=== PATIENT | female | born 1955 | race Caucasian/White ===

== ENCOUNTER → 2019-04-27 15:52 | Outpatient (BNVA) | payer BC, SELFPAY | PROVIDERS: Family Provider Nurse Practitioner; PCP Family Medicine; Visit Provider Nurse Practitioner Psychiatric/Mental Health | DX: F41.1 Generalized anxiety disorder (principal); F33.0 Major depressive disorder, recurrent, mild | CPT/HCPCS: 99214 ==

== ENCOUNTER 2019-07-21 08:46 | Outpatient (CLI) | payer BC, SELFPAY ==
--- NOTE | 2019-07-21 08:59 | XR_ITS ---
WS: [id number] CHEST 2 VIEWS HISTORY: CHRONIC RESPIRATORY CONDITIONS DUE TO CHEMICALS, GASES, FUSE COMPARISON: 07/01/2018 Lungs: Clear with no abnormality. No pleural effusion or pneumothorax. Cardiac size: Normal. Mediastinum/Aorta: Normal mediastinum. Bones: Normal. XR/XR chest 2V* [id number] IMPRESSION: Normal chest.
== END 2019-07-21 08:47 | disposition home or self-care (01) ==
LOC: RAD 08:51
PROVIDERS: PCP Nurse Practitioner; Visit Provider Nurse Practitioner
DX: J68.4 Chronic respiratory conditions due to chemicals, gases, fumes and vapors (principal); R06.89 Other abnormalities of breathing
CPT/HCPCS: 71046

== ENCOUNTER → 2019-07-27 08:35 | Outpatient (BNVA) | payer BC, SELFPAY | PROVIDERS: PCP Nurse Practitioner; Visit Provider Nurse Practitioner Psychiatric/Mental Health | DX: F41.1 Generalized anxiety disorder (principal); F33.42 Major depressive disorder, recurrent, in full remission | CPT/HCPCS: 99212 ==

== ENCOUNTER → 2019-09-07 07:55 | Outpatient (BNVA) | payer BC, SELFPAY | PROVIDERS: PCP Nurse Practitioner; Visit Provider Nurse Practitioner Psychiatric/Mental Health | DX: F33.42 Major depressive disorder, recurrent, in full remission (principal); F41.1 Generalized anxiety disorder | CPT/HCPCS: 99212 ==

== ENCOUNTER → 2019-10-19 09:26 | Outpatient (BNVA) | payer BC, SELFPAY | PROVIDERS: PCP Nurse Practitioner; Visit Provider Nurse Practitioner Psychiatric/Mental Health | DX: F33.42 Major depressive disorder, recurrent, in full remission (principal); F41.1 Generalized anxiety disorder | CPT/HCPCS: G0463 ==

== ENCOUNTER → 2020-01-11 07:42 | Outpatient (BNVA) | payer BC, SELFPAY | PROVIDERS: PCP Nurse Practitioner; Visit Provider Nurse Practitioner Psychiatric/Mental Health | DX: F33.42 Major depressive disorder, recurrent, in full remission (principal); F41.1 Generalized anxiety disorder | CPT/HCPCS: G0463 ==

== ENCOUNTER → 2020-02-24 15:56 | Outpatient (BNVA) | payer BC, SELFPAY | PROVIDERS: PCP Nurse Practitioner; Visit Provider Nurse Practitioner | DX: Z20.828 Contact with and (suspected) exposure to other viral communicable diseases (principal) | CPT/HCPCS: 87635 ==

== ENCOUNTER → 2020-04-11 10:15 | Outpatient (BNVA) | payer BC, SELFPAY | PROVIDERS: PCP Nurse Practitioner; Visit Provider Nurse Practitioner Psychiatric/Mental Health | DX: F41.1 Generalized anxiety disorder (principal); F33.41 Major depressive disorder, recurrent, in partial remission | CPT/HCPCS: 99214 ==

== ENCOUNTER → 2020-06-27 07:58 | Outpatient (BNVA) | payer BC, SELFPAY | PROVIDERS: PCP Nurse Practitioner; Visit Provider Nurse Practitioner Psychiatric/Mental Health | DX: F41.1 Generalized anxiety disorder (principal); F33.41 Major depressive disorder, recurrent, in partial remission | CPT/HCPCS: 99213 ==

== ENCOUNTER → 2021-07-31 14:36 | Outpatient (BNVA) | payer MEDICARE, BC, SELFPAY | PROVIDERS: PCP Nurse Practitioner; Visit Provider Internal Medicine Cardiovascular Disease | DX: I10 Essential (primary) hypertension (principal) | CPT/HCPCS: 99213; 99214 ==

== ENCOUNTER 2021-09-22 15:32 | Outpatient (CLI) | payer MEDICARE, BC, SELFPAY ==
--- NOTE | 2021-09-22 15:41 | MM_ITS ---
WS: [id number] BILATERAL 3D TOMOSYNTHESIS DIGITAL SCREENING MAMMOGRAPHY WITH CAD CLINICAL INFORMATION: Breast cancer screening HISTORY: Screening mammogram. Prior removed bilateral breast implants. COMPARISON: July 27, 2018 TECHNIQUE: Bilateral CC and MLO views. FINDINGS: The breasts are composed of heterogeneous fibroglandular density tissue, which can limit the detectio n of small underlying mass lesions. Benign breast calcifications bilaterally. No suspicious mass, asy mmetry, calcifications, or architectural distortion. No evidence of malignancy. MM/[place] [id number] IMPRESSION: BI-RADS: 2-Benign FOLLOW UP: 1 Year Follow-up Recommend return to annual screening mammography.
== END 2021-09-22 15:33 | disposition home or self-care (01) ==
PROVIDERS: Visit Provider Family Medicine
DX: Z12.31 Encounter for screening mammogram for malignant neoplasm of breast (principal)
CPT/HCPCS: 77063; 77067

== ENCOUNTER 2022-03-27 14:10 | Outpatient (CLI) | payer MEDICARE, BC, SELFPAY ==
--- NOTE | 2022-03-27 14:15 | USCV_ITS ---
Lola Waldrop Age: 66 Gender: F : 1955 Exam Date: 03/27/2022 14:24 Ordering Phys: Al Mendez DO Technologist: NIRMAL Exam Location: [facility] – [place] Indication: SYSTOLIC MURMUR BP: 118 / 82 HR: 61 Rhythm: Sinus Technical Quality: Adequate MEASUREMENTS (Male / Female) Normal Values 2D ECHO LVOT Diameter 2.0 cm LV Ejection Fraction MOD 2C 66.9 % LV Ejection Fraction 2C AL 69.6 % LA Diameter 2.8 cm LA Width 1.9 cm LA Height 4.7 cm RA Width 2.5 cm RA Height 3.7 cm Aorta at Sinotubular Diameter 2.3 cm IVC Diameter 1.4 cm M-MODE Aortic Annulus Diameter 2.5 cm LA Ao Ratio MM 1.1 MV E Point Septal Separation 0.6 cm DOPPLER AV Peak Velocity 179.7 cm/s LVOT Peak Velocity 118.0 cm/s AV Area Cont Eq vti 2.4 cm squared AV Area Cont Eq pk 2.1 cm squared MV Peak Velocity 85.0 cm/s MV Area PHT 3.5 cm squared Mitral E to A Ratio 0.8 MV E' Velocity 47.5 cm/s Mitral E to MV E' Ratio 7.9 Mitral E to LV E' Lateral Ratio 7.5 Mitral E to LV E' Septal Ratio 8.3 TR Peak Velocity 148.5 cm/s TR Peak Gradient 8.8 mmHg TR Mean Velocity 111.4 cm/s TR Mean Gradient 5.3 mmHg TR Velocity Time Integral 41.8 cm TV Peak E Velocity 49.0 cm/s Right Atrial Pressure 3.0 mmHg Pulmonary Artery Systolic Pressu 11.8 mmHg PV Peak Velocity 113.0 cm/s RV Acceleration Time 0.2 s RV Ejection Time 0.3 s RV AcT/ET 0.5 FINDINGS Left Ventricle Normal left ventricular size, systolic function and wall thickness, with no regional wall motion abnormalities. Left ventricular ejection fraction is estimated at 70 %. Normal diastolic function. Right Ventricle Normal right ventricular size and systolic function. Right ventricular systolic pressure 11.8 mmHg. Right Atrium Normal right atrial size. Left Atrium Normal left atrial size. Mitral Valve Structurally normal mitral valve. No mitral valve stenosis. No mitral valve regurgitation. Aortic Valve Structurally normal trileaflet aortic valve. No aortic valve stenosis. No aortic valve regurgitation. Tricuspid Valve Structurally normal tricuspid valve. No tricuspid valve stenosis. Trace tricuspid valve regurgitation. Pulmonic Valve Pulmonic valve not well visualized. No pulmonary valve stenosis. No pulmonary valve regurgitation. Pericardium No pericardial effusion. Aorta Normal size aortic root and proximal ascending aorta. IVC Normal IVC dimension with >50% respiratory change of the inferior vena cava. CONCLUSIONS 1. Normal left ventricular size, systolic function and wall thickness, with no regional wall motion abnormalities. Left ventricular ejection fraction is estimated at 70 %. Normal diastolic function. 2. No significant valvular abnormality. 3. No significant change when compared to study dated 12/15/2016. Sharmaine Santana MD (Electronically Signed) Final Date: 27 March 2022 21:42 S
== END 2022-03-27 14:11 | disposition home or self-care (01) ==
LOC: RAD 14:10
PROVIDERS: PCP Family Medicine; Visit Provider Family Medicine
DX: I35.8 Other nonrheumatic aortic valve disorders (principal)
CPT/HCPCS: 93306

== ENCOUNTER 2022-04-02 14:18 | Outpatient (CLI) | payer MEDICARE, BC, SELFPAY ==
--- NOTE | 2022-04-02 14:24 | MR_ITS ---
WS: [id number] MRI CERVICAL SPINE NONCONTRAST HISTORY: CERVICAL SPINAL STENOSIS COMPARISON: 10/21/2018 Technique: Multiplanar, multisequence noncontrast imaging of the cervical spine. Straightening and slight reversal the normal cervical lordosis centered at C4-5. Disc spaces are narrowed. Normal signal within the cord. Craniocervical junction, C1 and C2 relationship, odontoid process and soft tissues are normal. C2-C3: Normal. C3-C4: Mild osteophytic ridging. No significant stenosis. Very mild facet arthritis. C4-C5: Mild annular disc bulging and osteophytic ridging. Mild facet joint arthritis. There is encroa chment upon the ventral cervical cord and deformity. Moderate central and RIGHT foraminal stenosis. M ild LEFT foraminal stenosis. Not significantly changed since the prior study. C5-C6: Mild osteophytic ridging and disc bulging and facet arthritis. Larger osteophytes extend into the foramen. Moderate central with moderate to severe foraminal stenosis. Mild progression since the prior study. C6-C7: Diffuse osteophytic ridging and disc bulging and mild facet arthritis. Moderate central and bi lateral foraminal stenosis. Minimal progression since the prior study. C7-T1: Normal. Paraspinal soft tissue are normal. MR/MR cervical spin wo con* [id number] IMPRESSION: 1. Degenerative spondylitic changes in the mid cervical spine. Mild progressio n since 2019. Stenosis due to combination of vertebral body osteophytes and fac et disease and mild disc bulging. 2. Moderate central and RIGHT foraminal stenosis and mild LEFT foraminal steno sis at C4-5. 3. Moderate central with moderate to severe bilateral foraminal stenosis at C5 -6. 4. Moderate central and bilateral foraminal stenosis at C6-7.
--- NOTE | 2022-04-02 14:39 | MR_ITS ---
WS: [id number] MRI LUMBAR SPINE NONCONTRAST HISTORY: SPINAL STENOSIS COMPARISON: 10/04/2015 TECHNIQUE: Sagittal and axial multisequence imaging is submitted. Moderate S-shaped curvature lumbar spine. Posterior alignment is otherwise normal. No fractures or marrow edema. Mild disc desiccation. Conus terminates normally at L1-2 disc level. L1-L2: Minimal facet arthritis. No stenosis. L2-L3: Moderate annular disc bulging with mild progression since the prior study. Mild ligamentum fla vum and facet arthritis. L3-L4: Mild annular disc bulging with ligamentum flavum and facet arthritis. No stenosis. L4-L5: Mild annular disc bulging with moderate ligamentum flavum and facet arthritis. Mild encroachme nt upon the ventral thecal sac with mild narrowing of the subarticular recesses. Mild RIGHT foraminal narrowing. Suspect there is a small RIGHT foraminal disc protrusion. L5-S1: Minimal facet arthritis. Moderate ligamentum flavum hypertrophy. No stenosis. Paravertebral soft tissues are negative. MR/MR lumbar spine wo con* [id number] IMPRESSION: 1. Multilevel mild ligamentum flavum and facet arthritis. No significant progr ession since the prior study. 2. Mild central stenosis and subarticular recess stenosis at L4-5. 3. Small RIGHT foraminal disc protrusion and RIGHT foraminal stenosis at L4-5.
--- NOTE | 2022-04-02 15:48 | XR_ITS ---
WS: [id number] Exam: XR lumbar spine f/e only [id number] Date/Time of Exam: 04/02/2022 3:48 PM Reason For Exam: VERTEBROGENIC BACK PAIN Comparison 10/04/2015. No flexion or extension instability. Disc spaces relatively well maintained. Facet DJD at all levels. No change since previous exam. XR/XR lumbar spine f/e only [id number] IMPRESSION: 1. No flexion or extension instability. 2. Facet DJD at all levels.
== END 2022-04-02 14:19 | disposition home or self-care (01) ==
LOC: RAD 14:18
PROVIDERS: PCP Family Medicine; Visit Provider Anesthesiology Pain Medicine
DX: M48.02 Spinal stenosis, cervical region (principal)
CPT/HCPCS: 72120; 72141; 72148

== ENCOUNTER 2022-06-19 14:48 | Outpatient (CLI) | payer MEDICARE, BC, SELFPAY ==
--- NOTE | 2022-06-19 15:00 | XR_ITS ---
WS: [id number] DEXA (DUAL ENERGY X-RAY ABSORPTIOMETRY) Bone mineral density was performed using a [employer] machine. HISTORY: Screening for osteoporosis COMPARISON: None available. Lumbar spine BMD (L1-L4): 1.061 g/cm2 T score: -1.0 Z score: 0.5 Total hip BMD: Left: 0.792 g/cm2. T score: -1.7 Z score: -0.5 Right: 0.737 g/cm2. T score: -2.1 Z score: -0.9 10 year probability of a major osteoporotic fracture is 14.4%. Mild RIGHT curvature lumbar spine. XR/XR DEXA axial skeleton* [id number] IMPRESSION: OSTEOPENIA based upon the WHO classification for females.
== END 2022-06-19 14:49 | disposition home or self-care (01) ==
LOC: RAD 14:53
PROVIDERS: PCP Family Medicine; Visit Provider Family Medicine
DX: Z78.0 Asymptomatic menopausal state (principal); M85.80 Other specified disorders of bone density and structure, unspecified site
CPT/HCPCS: 77080

== ENCOUNTER → 2022-09-18 11:39 | Outpatient (BNVA) | payer MEDICARE, BC, SELFPAY | PROVIDERS: PCP Family Medicine; Visit Provider Internal Medicine Cardiovascular Disease | DX: I10 Essential (primary) hypertension (principal); F32.A Depression, unspecified; M19.90 Unspecified osteoarthritis, unspecified site; K21.9 Gastro-esophageal reflux disease without esophagitis; F41.1 Generalized anxiety disorder | CPT/HCPCS: 99214 ==

== ENCOUNTER → 2023-02-25 10:00 | Outpatient (BNVA) | payer MEDICARE, BC, SELFPAY | PROVIDERS: PCP Family Medicine; Visit Provider Nurse Practitioner Family | DX: R05.9 Cough, unspecified (principal); J06.9 Acute upper respiratory infection, unspecified | CPT/HCPCS: 87400; 87426 ==

== ENCOUNTER → 2023-05-11 18:14 | Outpatient (BNVA) | payer MEDICARE, BC, SELFPAY | PROVIDERS: PCP Family Medicine; Visit Provider Emergency Medicine | DX: R11.2 Nausea with vomiting, unspecified (principal); R19.7 Diarrhea, unspecified | CPT/HCPCS: 87400 ==

== ENCOUNTER 2023-05-12 07:59 | Inpatient (IN) | payer MEDICARE, BC, SELFPAY ==
[2023-05-12] VITALS (14 sets, daily range): BP systolic 139–163; BP diastolic 74–96; PULSE 73–103; RESP 16–22; TEMP 36.4–36.9; O2SAT 95–100; BMI 26.5; BMI 26.6
--- NOTE | 2023-05-12 08:13 | CT_ITS ---
WS: [id number] CT ABDOMEN PELVIS TECHNIQUE: Contrast-enhanced CT of the abdomen and pelvis with coronal and sagittal reformatted image s. CLINICAL INFORMATION: abd pain COMPARISON: CT 2018 DLP: 553.[address] scans at [facility] use at least one of these dose optimization techniques: automated e xposure control; mA and/or kV adjustment per patient size (includes targeted exams where dose is matc hed to clinical indication); or iterative reconstruction. FINDINGS: Mild diffuse fatty infiltration of the liver. Normal portal vein and splenic vein. Mild int rahepatic biliary ductal dilatation. Cholecystectomy clips. Small to moderate esophageal hiatal herni a appears progressed compared to 2018. Normal caliber abdominal aorta. Celiac and SMA are patent. Normal portal vein and splenic vein. Adren al glands are normal. Normal renal parenchymal enhancement. No hydronephrosis. Pelvic phleboliths. Tiny fat-containing umbilical hernia. Urine distended bladder. Sigmoid diverticul osis. Low-lying cecum in the RIGHT lower quadrant with mild constipation. No evidence of small or lar ge bowel obstruction. Prior appendectomy. Prior cholecystectomy. Hysterectomy. IMPRESSION: 1. Small to moderate esophageal hernia progressed compared to previous. 2. Prior cholecystectomy. Mild intrahepatic biliary ductal dilatation likely physiologic postcholecy stectomy. 3. No hydronephrosis in either kidney. 4. Few sigmoid diverticuli. 5. Mild cecal constipation. Low-lying cecum in the pelvis. 6. Prior appendectomy and hysterectomy. 7. No other acute findings.
--- NOTE | 2023-05-12 08:19 | W.ED.ABDPA2 ---
HPI - Abdominal Pain General: Chief Complaint: Abdominal Pain Stated Complaint: Vomiting blood, abd pain Time Seen by Provider: 05/12/23 08:08 Source: patient Mode of arrival: wheelchair History of Present Illness: 59-year-old female who presents to the emergency room with complaints of abdominal pain nausea and vomiting. This began about 3 days ago, initially with upper abdominal pain in the epigastric region. Within 24 hours she began to have nausea vomiting and diarrhea. Patient had dark vomitus and then yesterday noticed some small flecks of blood in the vomit that had a very concerned she was seen in an outpatient clinic and given antiemetics and discharged home with orally disintegrating ondansetron. She states she vomited this morning even after that and continues to vomit has worsening and now persistent epigastric leg pain. She states her urine has been dark and she has had decreased urine output but she has not noticed any hematuria. She previously has had EGD and colonoscopy, had a small polyp removed and was told to repeat her colonoscopy in 10 years. She is also had an appendectomy and cholecystectomy. Patient is extremely uncomfortable moving around a lot almost typical presentation for a kidney stone but she has no flank pain no dysuria urgency or frequency and no hematuria. She has not noticed any hematochezia or melena. No previous history of upper GI bleed. MD elicited complaint: abdominal pain Onset (ago): day(s) (3) Pain Consistency: constant Location: None Quality: cramping Relieving factors: nothing Associated Symptoms: Reports diarrhea, nausea and vomiting; Denies anorexia, belching, bloating, change in bowel habits, change in stool character, chills, coffee ground emesis, constipation, GI cramping, dyspepsia, dysuria, excessive flatus, fever(s), heartburn, hematochezia, hematuria, hematemesis, fecal incontinence, loose stools, melena, poor appetite and syncope Review of Systems Const: Denies: fever(s) or chills Card: Denies: chest pain or syncope Resp: Denies: dyspnea GI: Reports: abdominal pain, nausea, vomiting and diarrhea; Denies: hematemesis, coffee ground emesis, heartburn, constipation, bloating, GI cramping, belching, excessive flatus, fecal incontinence, change in bowel habits, change in stool character, hematochezia or melena : Denies: dysuria, urinary frequency, urinary urgency or hematuria Musc: Denies: neck pain or back pain Skin/Breast: Denies: rash PFSH ED PFSH: Medical History Congestion of nasal sinus Diverticulosis Psychiatric care Pharyngitis Thyroid disease Establishing care with new doctor, encounter for Anxiety Depression GERD (gastroesophageal reflux disease) Arthritis S/p breast implant removal Psychiatric care Major depressive disorder, recurrent, in partial remission Major depressive disorder, recurrent, in full remission HTN (hypertension) Generalized anxiety disorder Surgical History S/P cholecystectomy S/P breast augmentation S/P hysterectomy H/O: section Family History Father Stroke Hypercholesterolemia Grandfather Stroke Cancer Social History Smoking and tobacco/nicotine status: never used tobacco/nicotine Female Reproductive History: Spontaneous abortions: No Physical Exam Const: GENERAL APPEARANCE: cooperative and comfortable ORIENTATION/CONSCIOUSNESS: Yes awake, Yes oriented to person, Yes oriented to place and Yes oriented to time HENMT: COMMON NORMALS: normocephalic, atraumatic and hearing grossly normal bilaterally HEAD & SCALP: normocephalic and atraumatic Resp: COMMON NORMALS: normal respiratory effort, No retractions, No use of accessory muscles and clear to auscultation bilaterally AUSCULTATION: clear to auscultation bilaterally Cardio: COMMON NORMALS: regular rate, regular rhythm and No murmurs present (Cardio) RATE: regular rate RHYTHM: regular rhythm GI: COMMON NORMALS: Soft to palpation and No hepatosplenomegaly present AUSCULTATION: Yes normoactive bowel sounds PALPATION: Yes Soft to palpation, No Tenderness to palpation present (GI), No Guarding due to palpation present (GI) and Yes No hepatosplenomegaly present : COMMON NORMALS: Yes no CVA tenderness BLADDER/KIDNEY EXAM: Yes no CVA tenderness Back/Pelvis: COMMON NORMALS: no CVA tenderness Extremity: COMMON NORMALS: normal to inspection, capillary refill normal, no clubbing, cyanosis or edema, no calf tenderness and no pedal edema Neuro: SENSORIUM/ORIENTATION: Yes oriented to person, Yes oriented to place and Yes oriented to time Skin: COMMON NORMALS: no rashes or lesions noted GENERAL SKIN EXAM: no rashes or lesions noted Course Vital Signs: Vital signs: Vital Signs Temperature 97.5 F L 05/12/23 15:13 Pulse Rate 78 05/12/23 15:51 Respiratory Rate 16 05/12/23 15:51 Blood Pressure 157/80 05/12/23 15:13 Pulse Oximetry 97 05/12/23 15:51 Oxygen Delivery Me thod Room Air 05/12/23 15:51 MDM - Abdominal Pain Medical Decision Making Patient improved after pain medications and GI cocktail. Very mild elevation of liver enzymes. There is some slight dilation of the common bile duct but it looks physiologic postcholecystectomy after discussing with the radiologist. Fluids and pain medications of help will place patient nobs overnight EGD in the morning to evaluate for the hematemesis Differential Diagnosis Likely abdominal pain Medical Records I reviewed the patient's medical records. Lab Data I reviewed the patient's lab results. 05/12/23 08:10 05/12/23 08:10 Labs/Radiology: Radiology Impressions Chest X-Ray 05/12/23 10:58 IMPRESSION: No acute findings. Laboratory Results WBC 19.59 10^3/uL (3.29-11.43) H 05/12/23 08:10 RBC 5.22 10^6/uL (3.85-5.65) 05/12/23 08:10 Hgb 16.10 g/dL (11.27-16.99) 05/12/23 08:10 Hct 45.2 % (36-47) 05/12/23 08:10 MCV 86.6 fl (85-98) 05/12/23 08:10 MCH 30.8 pg (27-33) 05/12/23 08:10 MCHC 35.6 g/dL (30-55) 05/12/23 08:10 RDW 13.2 % (12.1-15.1) 05/12/23 08:10 Plt Count 346 10^3/cmm (157-399) 05/12/23 08:10 MPV 9.2 fL (7.4-10.4) 05/12/23 08:10 Neut % (Auto) 84.8 % 05/12/23 08:10 Lymph % (Auto) 7.0 % 05/12/23 08:10 [place] % (Auto) 7.0 % 05/12/23 08:10 Eos % (Auto) 0.3 % 05/12/23 08:10 Baso % (Auto) 0.1 % 05/12/23 08:10 Neut # (Auto) 16.61 10^3/uL (1.8-7.7) H 05/12/23 08:10 Lymph # (Auto) 1.4 10^3/uL (0.8-4.8) 05/12/23 08:10 [place] # (Auto) 1.4 10^3/uL (0.2-0.9) H 05/12/23 08:10 Eos # (Auto) 0.1 10^3/uL (0.0-0.8) 05/12/23 08:10 Baso # (Auto) 0.0 10^3/uL (0.0-0.1) 05/12/23 08:10 Nucleated RBC % (auto) 0 % 05/12/23 08:10 Nucleated RBCs # 0.0 /100WBC 05/12/23 08:10 PT 13.40 SECONDS (12.1-14.9) 05/12/23 08:10 INR 1.00 (0.8-1.2) 05/12/23 08:10 APTT 27.9 SECONDS (23.9-36.7) 05/12/23 08:10 Sodium 134 mmol/L (136-145) L 05/12/23 08:10 Potassium 3.6 mmol/L (3.5-5.1) 05/12/23 08:10 Chloride 95 mmol/L (98-107) L 05/12/23 08:10 Carbon Dioxide 22 mmol/L (22-29) 05/12/23 08:10 Anion Gap 20.6 (5-19) H 05/12/23 08:10 BUN 17 mg/dL (8-23) 05/12/23 08:10 Creatinine 0.8 mg/dL (0.5-0.9) 05/12/23 08:10 GFR Calculation 71.3 mL/min (90-130) L 05/12/23 08:10 Glucose 140 mg/dL (65-115) H 05/12/23 08:10 Calculated Osmolality 282 mOsm/kg (285-295) L 05/12/23 08:10 Calcium 10.1 mg/dL (8.5-10.5) 05/12/23 08:10 Total Bilirubin 0.8 mg/dL (0.15-1.2) 05/12/23 08:10 AST 40 U/L (0-32) H 05/12/23 08:10 ALT 35 U/L (0-33) H 05/12/23 08:10 Alkaline Phosphatase 66 U/L (35-105) 05/12/23 08:10 Total Protein 7.4 g/dL (6.6-8.7) 05/12/23 08:10 Albumin 5.1 g/dL (3.5-5.2) 05/12/23 08:10 Globulin 2.3 g/dL (1.3-4.6) 05/12/23 08:10 Lipase 40 U/L (13-60) 05/12/23 08:10 TSH 2.43 uIU/mL (0.27-4.20) 05/12/23 08:10 Urine Color Yellow (Yellow) 05/12/23 08:35 Urine Appearance Sl hazy (CLEAR) A 05/12/23 08:35 Urine pH 5 (5-7) 05/12/23 08:35 Ur Specific [place] 1.020 (1.005-1.030) 05/12/23 08:35 Urine Protein 1+ (Negative) H 05/12/23 08:35 Urine Glucose (UA) Norm (Normal) 05/12/23 08:35 Urine Ketones 2+ (Negative) H 05/12/23 08:35 Urine Blood 3+ (Negative) H 05/12/23 08:35 Urine Nitrate Negative (Negative) 05/12/23 08:35 Urine Bilirubin Neg (Negative) 05/12/23 08:35 Urine Urobilinogen Norm mg/dL (Negative) 05/12/23 08:35 Ur Leukocyte Esterase Negative (Negative) 05/12/23 08:35 Urine RBC 5-10 /hpf (0-2) H 05/12/23 08:35 Urine WBC 5-10 /hpf (0-5) H 05/12/23 08:35 Ur Squamous Epith Cells 10-15 /hpf (0-5) H 05/12/23 08:35 Ur Renal Epithelial Cell 0-4 /hpf 05/12/23 08:35 Amorphous Sediment Not Reportable 05/12/23 08:35 Urine Bacteria Trace /hpf (NONE) 05/12/23 08:35 Urine Mucus 3+ /hpf 05/12/23 08:35 Blood Type O Positive 05/12/23 08:26 Rho(D) Type Rh positive 05/12/23 08:26 Antibody Screen Negative 05/12/23 08:26 All radiology interpretation(s) finalized by discharge Discharge Plan Discharge Patient Disposition: Placed in Observation Admit Provider: Mary Walker Clinical Impression: Hematemesis, Leukocytosis Coding Level of Care Code ED [employer] for Leona Nuñez
[2023-05-12 08:24] LABS: Basophils % 0.1 %; Eosinophils # 0.1 10^3/uL (0.0-0.8); Eosinophils % 0.3 %; Hematocrit 45.2 % (36-47); Lymphocytes # 1.4 10^3/uL (0.8-4.8); Mean Corpuscular HGB Conc 35.6 g/dL (30-55); Mean Corpuscular Hemoglobin 30.8 pg (27-33); Mean Corpuscular Volume 86.6 fl (85-98); Mean Platelet Volume 9.2 fL (7.4-10.4); Monocytes # 1.4 10^3/uL (0.2-0.9); Neutrophils # 16.61 10^3/uL (1.8-7.7); Neutrophils % 84.8 %; Nucleated Red Blood Cells % 0 %; Platelet Count 346 10^3/cmm (157-399); Red Blood Count 5.22 10^6/uL (3.85-5.65); Red Cell Distribution Width 13.2 % (12.1-15.1); White Blood Count 19.59 10^3/uL (3.29-11.43)
[2023-05-12] MEDS: morphine 4 mg/mL SDV 1 mL IVP ×2 (08:33→09:04)
[2023-05-12] MEDS: pantoprazole 40 mg SDV 80 MG IVP (08:34)
[2023-05-12] MEDS: sodium chloride 0.9% 1,000 ML 999 ML IV (08:34)
[2023-05-12 08:42] LABS: Partial Thromboplastin Time 27.9 SECONDS (23.9-36.7)
[2023-05-12 08:45] LABS: Alanine Aminotransferase 35 U/L (0-33); Albumin Level 5.1 g/dL (3.5-5.2); Alkaline Phosphatase 66 U/L (35-105); Aspartate Amino Transferase 40 U/L (0-32); Blood Urea Nitrogen 17 mg/dL (8-23); Calcium 10.1 mg/dL (8.5-10.5); Carbon Dioxide 22 mmol/L (22-29); Chloride 95 mmol/L (98-107); Creatinine Clr Calc Pharmacy 62.3216; Globulin 2.3 g/dL (1.3-4.6); Glomerular Filtration Rate 71.3 mL/min (90-130); Glucose 140 mg/dL (65-115); Lipase 40 U/L (13-60); Osmolality Calculated 282 mOsm/kg (285-295); Sodium 134 mmol/L (136-145); Total Bilirubin 0.8 mg/dL (0.15-1.2); Total Protein 7.4 g/dL (6.6-8.7)
[2023-05-12 08:48] LABS: Anion Gap 20.6 (5-19); Potassium 3.6 mmol/L (3.5-5.1)
[2023-05-12 08:59] LABS: Add Urine Culture? No; Add Urine Microscopic? YES; Bacteria Urine TRACE /hpf; Bilirubin Urine Neg (Negative); Blood Urine 3+ (Negative); Glucose Urine UA Norm (Normal); Ketones Urine 2+ (Negative); Leukocyte Esterase Urine Negative (Negative); Mucus Urine 3+ /hpf; Nitrate Urine Negative (Negative); Protein Urine 1+ (Negative); Renal Epithelial Cells Urine 0-4 /hpf; Urine Appearance SL Hazy (CLEAR); Urine Color Yellow (Yellow); Urobilinogen Urine Norm (Negative); pH Urine 5 (5-7)
[2023-05-12] MEDS: metoclopramide 5 mg/mL SDV 2 mL 10 MG IVP (09:03)
[2023-05-12] MEDS: iohexol 350 mg/mL 500 mL Btl (per mL) IV (09:20)
--- NOTE | 2023-05-12 10:58 | XRR_ITS ---
PROCEDURE INFORMATION: Exam: XR Chest Exam date and time: 05/12/2023 11:23 AM Age: 67 years old Clinical indication: Cough and dyspnea; Additional info: Dyspnea/cough/leukocytosis TECHNIQUE: Imaging protocol: Radiologic exam of the chest. Views: 1 view. COMPARISON: CR XR chest 2V* [id number] 07/21/2019 9:04 AM FINDINGS: Lungs: Unremarkable. No consolidation. Pleural spaces: Unremarkable. No pleural effusion. No pneumothorax. Heart/Mediastinum: Unremarkable. No cardiomegaly. Bones/joints: Unremarkable. XR/XR chest 1V portable [id number] IMPRESSION: No acute findings.
[2023-05-12] MEDS: lidocaine 2% viscous 15 ML, aluminum-mag hydrox-simethicon 30 ML, sucralfate oral liq 1 GM PO (11:23)
--- NOTE | 2023-05-12 13:15 | PM.HP ---
Providers/Chief Complaint Admitting Physician: Mary Walker MD Primary Care Provider: Al Mendez DO Chief Complaint: Vomiting blood, abd pain History of Present Illness Lola Waldrop is a 67 year old female present today with chief complaint abdominal pain and recurrent nausea vomiting. Patient is stating that she was in her usual state of health until Wednesday and then started experiencing diarrhea, associated with nausea and vomiting, initially her vomiting color was bile colored with some food particles which gradually changed to coffee-ground dark-colored. She is unaware of any history of hiatal hernia or esophageal hernia, no history of gastric ulcer. She lives alone, does not smoke or drink alcohol, no significant cardiac history, patient is stating that she has been having more than 15 episodes of vomiting her last proper meal was on Wednesday her symptoms progressed she was seen at urgent care on Wednesday she was given Zofran but her symptoms did not subside at all. In the ER her hemoglobin is stable she is hemodynamically stable CBC is showing white count around 90,000 no signs of aspiration pneumonia CT abdomen pelvis showing esophageal hernia Review of Systems Const: Denies: fever(s) Eyes: Denies: change in vision ENMT: Denies: throat pain Card: Denies: chest pain Resp: Denies: dyspnea GI: Reports: abdominal pain and nausea : Denies: flank pain Musc: Denies: neck pain Skin/Breast: Denies: rash Neuro: Denies: headache(s) Psych: Reports: anxiety Medications/Allergies Home Medications Medication Instructions Recorded Confirmed Last Taken Type melatonin 10 mg tablet 10 mg PO BEDTIME 04/27/19 05/12/23 05/10/23 History aspirin 81 mg tablet,delayed 81 mg PO DAILY PRN Pain 07/31/21 05/12/23 Unknown History release (Adult Low Dose Aspirin) progesterone micronized 100 mg 400 mg PO BEDTIME 07/31/21 05/12/23 05/10/23 History capsule spironolactone 100 mg tablet 100 mg PO DAILY 07/31/21 05/12/23 05/10/23 History albuterol sulfate 90 mcg/actuation 2 puff inhalation Q6H PRN 08/18/21 05/12/23 Unknown Rx aerosol inhaler (Ventolin HFA) shortness of breath or wheezing #8.5 grams metoprolol tartrate 25 mg tablet 25 mg PO BID #180 tabs 11/26/22 05/12/23 05/10/23 Rx lorazepam 1 mg tablet 1 mg PO .COMPLEX PRN anxiety 30 04/26/23 05/12/23 05/10/23 Rx days #90 tabs tizanidine 4 mg tablet 4 mg PO Q8H PRN Spasms 04/26/23 05/12/23 Unknown History ondansetron 8 mg disintegrating 8 mg PO Q8H PRN nausea and 05/11/23 05/12/23 Unknown Rx tablet vomiting 5 days #15 tabs Estradiol 8 Mg Cream See Rx Instructions .Route .COMPLEX 05/12/23 05/12/23 05/10/23 History azelastine 137 mcg (0.1 %) nasal 1 spray intranasal BID PRN 05/12/23 05/12/23 Unknown History spray aerosol allergies escitalopram oxalate 5 mg tablet 5 mg PO QAM 05/12/23 05/12/23 05/10/23 History hydrocodone 7.5 mg-acetaminophen 1 tab PO Q8H PRN Pain 05/12/23 05/12/23 05/10/23 History 325 mg tablet thyroid (pork) 60 mg tablet (BUILDING ILLUMINATING ENGINEER 60 mg PO QAM 05/12/23 05/12/23 05/10/23 History Thyroid) Allergies Allergy/AdvReac Type Severity Reaction Status Date / Time venlafaxine Allergy Severe ADR-Headach Verified 05/11/23 18:03 e PFSH Acute PFSH: Medical History Congestion of nasal sinus Diverticulosis Psychiatric care Pharyngitis Thyroid disease Establishing care with new doctor, encounter for Anxiety Depression GERD (gastroesophageal reflux disease) Arthritis S/p breast implant removal Psychiatric care Major depressive disorder, recurrent, in partial remission Major depressive disorder, recurrent, in full remission HTN (hypertension) Generalized anxiety disorder Surgical History S/P cholecystectomy S/P breast augmentation S/P hysterectomy H/O: section Family History Father Stroke Hypercholesterolemia Grandfather Stroke Cancer Social History Smoking and tobacco/nicotine status: never used tobacco/nicotine Female Reproductive History: Spontaneous abortions: No Vitals/I&O/Wt Last Vital Signs Temp 98.0 F 05/12/23 08:04 Pulse 103 H 05/12/23 11:00 Resp 22 H 05/12/23 09:04 BP 150/87 05/12/23 11:00 Pulse Ox 98 05/12/23 11:00 O2 Del Method Room Air 05/12/23 10:30 05/11/23 05/12/23 05/12/23 22:59 06:59 14:59 Intake Total 1000 / 1000 Balance 1000 / 1000 Weight last 48 hrs Weight 68.039 kg Physical Exam Narrative: Pleasant and cooperative Skin is flushed She is not sure if she is allergic but stating this redness and facial flushing skin flushing started at home as well GCS 15 Nonfocal neuroexam Pleasant cooperative S1, S2 No peritonitis or signs of rigidity Mild tenderness on deep palpation epigastric and hypogastric region Currently on room air Data 05/12/23 08:10 05/12/23 08:10 A&P Assessment and plan (1) Generalized anxiety disorder: (2) HTN (hypertension): (3) GERD (gastroesophageal reflux disease): (4) Hematemesis: Plan Hematemesis after multiple bouts of vomiting Monique-Garcia? Hemoglobin stable Esophageal hernia evident on CT scan Patient seems to have history of GERD No history of cancer excessive use of ibuprofen or gastric ulcer I will keep her on clear liquid diet today, n.p.o. after midnight Will consult general surgery for endoscopy She carries history of generalized anxiety She does not seem anxious at all For her hypothyroidism continue levothyroxine Will use IV Zofran Will add Protonix 40 mg IV twice daily Hold aspirin Attestations Medical Necessity Statement*: Anticipate discharge within 48 hours Diagnoses Generalized anxiety disorder F41.1 HTN (hypertension) I10 GERD (gastroesophageal reflux disease) K21.9 Hematemesis K92.0
[2023-05-12] MEDS: morphine 4 mg/mL SDV 1 mL 2 MG IVP (14:03)
[2023-05-12] MEDS: sodium chloride 0.9% 1,000 ML 75 ML IV (14:04)
[2023-05-12 14:13] LABS: Thyroid Stimulating Hormone 2.43 uIU/mL (0.27-4.20)
[2023-05-12] MEDS: HYDROmorphone 1 mg/mL INJ 1 mL 0.400000000000000022 MG IVP (17:07)
[2023-05-12] MEDS: pantoprazole 40 mg SDV IVP (17:08)
[2023-05-12] MEDS: morphine IR 15 mg Tablet PO (21:45)
[2023-05-13] VITALS (17 sets, daily range): BP systolic 123–181; BP diastolic 65–98; PULSE 67–118; RESP 16–20; TEMP 36.3–37.4; O2SAT 93–99
[2023-05-13] MEDS: HYDROmorphone 1 mg/mL INJ 1 mL 0.400000000000000022 MG IVP ×4 (00:08→16:13)
[2023-05-13] MEDS: sodium chloride 0.9% 1,000 ML 75 ML IV ×2 (02:08→16:13)
[2023-05-13 06:37] LABS: Basophils % 0.2 %; Hematocrit 39.5 % (36-47); Lymphocytes # 2.2 10^3/uL (0.8-4.8); Lymphocytes % 17.1 %; Mean Corpuscular HGB Conc 34.7 g/dL (30-55); Mean Corpuscular Hemoglobin 30.8 pg (27-33); Mean Corpuscular Volume 88.8 fl (85-98); Mean Platelet Volume 9.2 fL (7.4-10.4); Monocytes # 1.2 10^3/uL (0.2-0.9); Monocytes % 9.5 %; Neutrophils # 9.28 10^3/uL (1.8-7.7); Neutrophils % 72.8 %; Nucleated Red Blood Cells % 0 %; Platelet Count 277 10^3/cmm (157-399); Red Blood Count 4.45 10^6/uL (3.85-5.65); Red Cell Distribution Width 13.4 % (12.1-15.1); White Blood Count 12.74 10^3/uL (3.29-11.43)
[2023-05-13 07:02] LABS: Blood Urea Nitrogen 13 mg/dL (8-23); C Reactive Protein 6.4 mg/L (0.0-4.9); Calcium 8.8 mg/dL (8.5-10.5); Carbon Dioxide 22 mmol/L (22-29); Chloride 102 mmol/L (98-107); Creatinine Clr Calc Pharmacy 63.5022; Glomerular Filtration Rate 99.4 mL/min (90-130); Glucose 95 mg/dL (65-115); Magnesium 2.1 mg/dL (1.7-2.3); Osmolality Calculated 286 mOsm/kg (285-295); Sodium 138 mmol/L (136-145)
[2023-05-13 07:20] LABS: Anion Gap 17.1 (5-19); Potassium 3.1 mmol/L (3.5-5.1)
[2023-05-13] MEDS: pantoprazole 40 mg SDV IVP ×2 (08:00→17:10)
--- NOTE | 2023-05-13 09:35 | P.PN_ITS ---
Subjective 2 Subjective: Nursing lethargic and fatigued Leukocytosis around 12,000 Potassium 3.1 Plan for EGD this afternoon Will do clear liquid diet trial to see if she is able to tolerate Patient most likely has allergy to Zofran as that is the only medication she has taken the last few days her skin was flushed, she is stating that she noticed some throat fullness as well Switch to Reglan Vitals/I&O/Wt Last Vital Signs Temp 98.2 F 05/13/23 07:41 Pulse 67 05/13/23 07:41 Resp 18 05/13/23 08:00 BP 168/72 05/13/23 07:41 Pulse Ox 99 05/13/23 07:41 O2 Del Method Room Air 05/13/23 07:41 05/12/23 05/13/23 05/13/23 22:59 06:59 14:59 Intake Total 170 / 1170 905 / 2075 Output Total 300 / 300 Balance 170 / 1170 905 / 2075 -300 / -300 Weight last 48 hrs Weight 70.817 kg Weight 68.266 kg Weight 68.039 kg Physical Exam 2 Narrative: Signs of dehydration present Present GCS 15 Able to walk to the bathroom Nonfocal neuroexam Currently on room air Data 05/13/23 05:25 05/13/23 05:25 A&P Assessment and plan (1) Generalized anxiety disorder: (2) HTN (hypertension): (3) GERD (gastroesophageal reflux disease): (4) Hematemesis: (5) Hypokalemia: Plan Hypokalemia: Replenished with IV regimen Dehydration continue IV fluids Leukocytosis around 12,000, afebrile Patient stating that she tried to clear liquid diet last night and vomited right away Full code N.p.o. for now Plan for EGD today Patient will need to stay 1 more day for her dehydration, she is still not tolerating diet, Attestations 2 Medical Necessity Statement*: Discharge likely tomorrow Diagnoses Generalized anxiety disorder F41.1 HTN (hypertension) I10 GERD (gastroesophageal reflux disease) K21.9 Hematemesis K92.0 Hypokalemia E87.6
[2023-05-13 10:17] LABS: Estmated Average Glucose 108; Hemoglobin A1C 5.4 % (4.0-6.0)
[2023-05-13] MEDS: metoclopramide 5 mg/mL SDV 2 mL IVP ×2 (10:43→17:10)
--- NOTE | 2023-05-13 10:44 | P.CONIM_ITS ---
Providers/Reason For Consult 2 Consulting Physician/Specialty*: Dr. Tulio Manning DO/General surgery Reason for Consult*: GI bleed Attending Physician: Mary Walker MD Primary Care Provider: Al Mendez DO History of Present Illness History of Present Illness Lola Waldrop is a 67 year old female who presented to the hospital with a 2- day history of nausea vomiting and epigastric pain. Palpation major dull epigastric pain worse. Nothing made it better. Pain does not radiate. She reports that she was vomiting at least 15 times a day and then the vomit turned into coffee-ground emesis. She reports that she has had diarrhea over this time. But she denies any hematochezia and/or melena. She denies any sick contacts, recent history of travel or possibility of eating bad food. General surgery was consulted for possible EGD Review of Systems 2 General: Reports: 10 or more systems reviewed and unremarkable except in HPI and below Medications/Allergies Home Medications Medication Instructions Recorded Confirmed Last Taken Type melatonin 10 mg tablet 10 mg PO BEDTIME 04/27/19 05/12/23 05/10/23 History aspirin 81 mg tablet,delayed 81 mg PO DAILY PRN Pain 07/31/21 05/12/23 Unknown History release (Adult Low Dose Aspirin) progesterone micronized 100 mg 400 mg PO BEDTIME 07/31/21 05/12/23 05/10/23 History capsule spironolactone 100 mg tablet 100 mg PO DAILY 07/31/21 05/12/23 05/10/23 History albuterol sulfate 90 mcg/actuation 2 puff inhalation Q6H PRN 08/18/21 05/12/23 Unknown Rx aerosol inhaler (Ventolin HFA) shortness of breath or wheezing #8.5 grams metoprolol tartrate 25 mg tablet 25 mg PO BID #180 tabs 11/26/22 05/12/23 05/10/23 Rx lorazepam 1 mg tablet 1 mg PO .COMPLEX PRN anxiety 30 04/26/23 05/12/23 05/10/23 Rx days #90 tabs tizanidine 4 mg tablet 4 mg PO Q8H PRN Spasms 04/26/23 05/12/23 Unknown History ondansetron 8 mg disintegrating 8 mg PO Q8H PRN nausea and 05/11/23 05/12/23 Unknown Rx tablet vomiting 5 days #15 tabs Estradiol 8 Mg Cream See Rx Instructions .Route .COMPLEX 05/12/23 05/12/23 05/10/23 History azelastine 137 mcg (0.1 %) nasal 1 spray intranasal BID PRN 05/12/23 05/12/23 Unknown History spray aerosol allergies escitalopram oxalate 5 mg tablet 5 mg PO QAM 05/12/23 05/12/23 05/10/23 History hydrocodone 7.5 mg-acetaminophen 1 tab PO Q8H PRN Pain 05/12/23 05/12/23 05/10/23 History 325 mg tablet thyroid (pork) 60 mg tablet (BUSINESS OFFICE TECHNOLOGY INSTRUCTOR 60 mg PO QAM 05/12/23 05/12/23 05/10/23 History Thyroid) Allergies Allergy/AdvReac Type Severity Reaction Status Date / Time venlafaxine Allergy Severe ADR-Headach Verified 05/11/23 18:03 e ondansetron Allergy ALGY-Difficulty Verified 05/13/23 09:02 Swallowing Current Medications Generic Name Dose Route Start Last Admin Trade Name Freq PRN Reason Stop Dose Admin Hydromorphone HCl 0.4 mg 05/12/23 16:55 05/13/23 08:00 Hydromorphone 1 Mg/Ml Inj 1 Ml IVP 0.4 mg Q4H PRN Administration SEVERE PAIN Sodium Chloride 1,000 mls @ 75 mls/hr 05/12/23 13:33 05/13/23 02:08 Sodium Chloride 0.9% IV 75 mls/hr .[id number] KIP Administration Morphine Sulfate 15 mg 05/12/23 13:33 05/12/23 21:45 Morphine Ir 15 Mg Tablet PO 15 mg Q6H PRN Administration MODERATE PAIN Pantoprazole Sodium 40 mg 05/12/23 18:00 05/13/23 08:00 Pantoprazole 40 Mg Sdv IVP 40 mg BID KIP Administration Thyroid 60 mg 05/13/23 06:00 05/13/23 06:22 Thyroid 60 Mg Tablet PO Not Given QAM KIP PFSH Acute 2 PFSH: Medical History Congestion of nasal sinus Diverticulosis Psychiatric care Pharyngitis Thyroid disease Establishing care with new doctor, encounter for Anxiety Depression GERD (gastroesophageal reflux disease) Arthritis S/p breast implant removal Psychiatric care Major depressive disorder, recurrent, in partial remission Major depressive disorder, recurrent, in full remission HTN (hypertension) Generalized anxiety disorder Surgical History S/P cholecystectomy S/P breast augmentation S/P hysterectomy H/O: section Family History Father Stroke Hypercholesterolemia Grandfather Stroke Cancer Social History Smoking and tobacco/nicotine status: never used tobacco/nicotine Female Reproductive History: Spontaneous abortions: No Vitals/I&O/Wt Last Vital Signs Temp 98.2 F 05/13/23 07:41 Pulse 67 05/13/23 07:41 Resp 18 05/13/23 08:00 BP 168/72 05/13/23 07:41 Pulse Ox 99 05/13/23 07:41 O2 Del Method Room Air 05/13/23 07:41 05/12/23 05/13/23 05/13/23 22:59 06:59 14:59 Intake Total 170 / 1170 905 / 2075 Output Total 300 / 300 Balance 170 / 1170 905 / 2075 -300 / -300 Weight last 48 hrs Weight 156 lb 2 oz Weight 150 lb 8 oz Weight 150 lb Physical Exam 2 Narrative: General : Patient is well developed , no acute distress, oriented x3 Head : Normal cephalic, a-traumatic. Ears : Pinnae and external canal are normal. Hearing is normal. Eyes : PERRLA, Sclera and injection are normal. No conjunctival discharge. Nose : Mucous membranes are without erythema. Throat : buccal mucosa is normal, gums are without significant recession or hypertrophy. Lungs : Equal chest rise bilaterally, no use of accessory muscles, trachea is midline. Cor : Rate and rhythm are normal. Abdomen : Soft, ND, mild epigastric tenderness, no g/r/m Extremities : No edema, no cyanosis or clubbing, dorsalis pedis pulses are present bilaterally, non-tender to palpation of calves. Upper extremities are normal bilaterally. Back : non-tender to palpation, no CVA tenderness. Neuro : CN II - XII intact, Upper and lower extremities have equal and full strength Data 05/13/23 05:25 05/13/23 05:25 A&P Assessment and plan (1) Hematemesis: (2) GERD (gastroesophageal reflux disease): Plan EGD The risks and benefits of the procedure, including bleeding, infection, intestinal perforation requiring surgery, missed lesion were explained to the patient. The patient is understanding of the risks and wishes to proceed. Coding Level of Care Code 43273 Diagnoses Hematemesis K92.0 GERD (gastroesophageal reflux disease) K21.9
[2023-05-13] MEDS: lidocaine 1% 5 ML in potassium chloride premix 100 ML 25 ML IV (11:20)
[2023-05-13] MEDS: sodium chloride 0.9% 1,000 ML 30 ML IV (14:30)
--- NOTE | 2023-05-13 14:33 | P.ANESASSM_ITS ---
Pre-Anesthetic Assessment Height/Weight: Height 1.6 m Weight 70.817 kg Temp Pulse Resp BP Pulse Ox O2 Del Method 97.3 F L 79 16 166/88 96 Room Air 05/13/23 14:17 05/13/23 14:17 05/13/23 14:17 05/13/23 14:17 05/13/23 14:17 05/13/23 14:17 Operation Date: 05/13/23 14:30 Proposed Procedures p EGD(Not Applicable) - Tulio Manning, DO Was Beta Andreea taken within 24 hours: Yes Was Clonidine taken within 24 hours: N/A Social No alcohol and No tobacco Exam alert and oriented x 3 Airway Submandibular: within normal limits Cervical ROM: within normal limits Mallampati: Class III Dentition: full History/ROS No significant history except as noted and No significant complaints CV/HEM Hypertension GI Gastroesophageal Reflux Disease Metabolic Thyroid Disease Neuropsych Depression Anesthetic Plan ASA status: 2 Anesthesia: MAC Risk of > 500 ml blood loss (7ml/kg in children): No Medications/Allergies Home Medications Medication Instructions Recorded Confirmed Last Taken Type melatonin 10 mg tablet 10 mg PO BEDTIME 04/27/19 05/12/23 05/10/23 History aspirin 81 mg tablet,delayed 81 mg PO DAILY PRN Pain 07/31/21 05/12/23 Unknown History release (Adult Low Dose Aspirin) progesterone micronized 100 mg 400 mg PO BEDTIME 07/31/21 05/12/23 05/10/23 History capsule spironolactone 100 mg tablet 100 mg PO DAILY 07/31/21 05/12/23 05/10/23 History albuterol sulfate 90 mcg/actuation 2 puff inhalation Q6H PRN 08/18/21 05/12/23 Unknown Rx aerosol inhaler (Ventolin HFA) shortness of breath or wheezing #8.5 grams metoprolol tartrate 25 mg tablet 25 mg PO BID #180 tabs 11/26/22 05/12/23 05/10/23 Rx lorazepam 1 mg tablet 1 mg PO .COMPLEX PRN anxiety 30 04/26/23 05/12/23 05/10/23 Rx days #90 tabs tizanidine 4 mg tablet 4 mg PO Q8H PRN Spasms 04/26/23 05/12/23 Unknown History ondansetron 8 mg disintegrating 8 mg PO Q8H PRN nausea and 05/11/23 05/12/23 Unknown Rx tablet vomiting 5 days #15 tabs Estradiol 8 Mg Cream See Rx Instructions .Route .COMPLEX 05/12/23 05/12/23 05/10/23 History azelastine 137 mcg (0.1 %) nasal 1 spray intranasal BID PRN 05/12/23 05/12/23 Unknown History spray aerosol allergies escitalopram oxalate 5 mg tablet 5 mg PO QAM 05/12/23 05/12/23 05/10/23 History hydrocodone 7.5 mg-acetaminophen 1 tab PO Q8H PRN Pain 05/12/23 05/12/23 05/10/23 History 325 mg tablet thyroid (pork) 60 mg tablet (POISON INFORMATION SPECIALIST 60 mg PO QAM 05/12/23 05/12/23 05/10/23 History Thyroid) Allergies Allergy/AdvReac Type Severity Reaction Status Date / Time venlafaxine Allergy Severe ADR-Headach Verified 05/11/23 18:03 e ondansetron Allergy ALGY-Difficulty Verified 05/13/23 09:02 Swallowing Current Medications Generic Name Dose Route Start Last Admin Trade Name Freq PRN Reason Stop Dose Admin Hydromorphone HCl 0.4 mg 05/12/23 16:55 05/13/23 12:23 Hydromorphone 1 Mg/Ml Inj 1 Ml IVP 0.4 mg Q4H PRN Administration SEVERE PAIN Sodium Chloride 1,000 mls @ 75 mls/hr 05/12/23 13:33 05/13/23 02:08 Sodium Chloride 0.9% IV 75 mls/hr .[id number] KIP Administration Lidocaine HCl 5 ml/ Potassium 105 mls @ 25 mls/hr 05/13/23 11:00 05/13/23 11:20 Chloride IV 05/13/23 15:11 25 mls/hr ONCE ONE Administration Metoclopramide HCl 5 mg 05/13/23 09:01 05/13/23 10:43 Metoclopramide 5 Mg/Ml Sdv 2 Ml IVP 5 mg Q6H PRN Administration NAUSEA AND VOMITING Morphine Sulfate 15 mg 05/12/23 13:33 05/12/23 21:45 Morphine Ir 15 Mg Tablet PO 15 mg Q6H PRN Administration MODERATE PAIN Pantoprazole Sodium 40 mg 05/12/23 18:00 05/13/23 08:00 Pantoprazole 40 Mg Sdv IVP 40 mg BID KIP Administration Thyroid 60 mg 05/13/23 06:00 05/13/23 06:22 Thyroid 60 Mg Tablet PO Not Given QAM KIP PFSH Anesthesia Medical History Congestion of nasal sinus Diverticulosis Psychiatric care Pharyngitis Thyroid disease Establishing care with new doctor, encounter for Anxiety Depression GERD (gastroesophageal reflux disease) Arthritis S/p breast implant removal Psychiatric care Major depressive disorder, recurrent, in partial remission Major depressive disorder, recurrent, in full remission HTN (hypertension) Generalized anxiety disorder Surgical History S/P cholecystectomy S/P breast augmentation S/P hysterectomy H/O: section Family History Father Stroke Hypercholesterolemia Grandfather Stroke Cancer Social History Smoking and tobacco/nicotine status: never used tobacco/nicotine Female Reproductive History Spontaneous abortions: No Data Anesthesia 05/13/23 05:25 05/13/23 05:25 Short CBC 05/12/23 05/13/23 Range/Units 08:10 05:25 WBC 19.59 H 12.74 H (3.29-11.43) 10^3/uL Hgb 16.10 13.70 (11.27-16.99) g/dL Hct 45.2 39.5 (36-47) % MCV 86.6 88.8 (85-98) fl Plt Count 346 277 (157-399) 10^3/cmm Neut % (Auto) 84.8 72.8 % Neut # (Auto) 16.61 H 9.28 H (1.8-7.7) 10^3/uL BMP 05/12/23 05/13/23 08:10 05:25 Sodium 134 L 138 Potassium 3.6 3.1 L Chloride 95 L 102 Carbon Dioxide 22 22 BUN 17 13 Creatinine 0.8 0.6 Glucose 140 H 95 Calcium 10.1 8.8 Liver Function 05/12/23 Range/Units 08:10 Total Bilirubin 0.8 (0.15-1.2) mg/dL AST 40 H (0-32) U/L ALT 35 H (0-33) U/L Alkaline Phosphatase 66 (35-105) U/L Albumin 5.1 (3.5-5.2) g/dL Urine 05/12/23 Range/Units 08:35 Urine Color Yellow (Yellow) Urine Appearance Sl hazy A (CLEAR) Urine pH 5 (5-7) Ur Specific [place] 1.020 (1.005-1.030) Urine Protein 1+ H (Negative) Urine Glucose (UA) Norm (Normal) Urine Ketones 2+ H (Negative) Urine Nitrate Negative (Negative) Urine Bilirubin Neg (Negative) Ur Leukocyte Esterase Negative (Negative) Urine RBC 5-10 H (0-2) /hpf Urine WBC 5-10 H (0-5) /hpf Ur Renal Epithelial Cell 0-4 /hpf Blood Bank 05/12/23 08:26 Blood Type O Positive Rho(D) Type Rh positive Antibody Screen Negative Coags 05/12/23 05/13/23 08:10 05:25 PT 13.40 INR 1.00 APTT 27.9 C-Reactive Protein 6.4 H Cardiac Studies: 2 Echocardiogram 03/27/22
[2023-05-13] MEDS: EPINEPHrine 1 mg/mL INJ XX (14:59)
--- NOTE | 2023-05-13 20:15 | ANE.PACU2 ---
Inpatient post-anesthesia follow up: Airway intact: Yes Vital signs: Temperature 98.3 F Pulse Rate 79 Respiratory Rate 17 Blood Pressure 147/67 Pulse Oximetry 97 Oxygen Delivery Me thod Room Air Oxygen Flow Rate Fraction of Inspir ed Oxygen Hydration adequate: Yes Nausea and vomiting: No Pain level: 1 Mental status: Baseline
[2023-05-13] MEDS: morphine IR 15 mg Tablet PO (21:10)
[2023-05-14] VITALS: BP 131/68; PULSE 86; RESP 17; TEMP 36.9; O2SAT 93
[2023-05-14 04:00] VITALS: BP 142/78; PULSE 69; RESP 16; TEMP 36.8; O2SAT 96
[2023-05-14] MEDS: thyroid 60 mg Tablet PO (05:26)
[2023-05-14] MEDS: sodium chloride 0.9% 1,000 ML 75 ML IV (05:27)
[2023-05-14 05:50] LABS: Basophils % 0.4 %; Eosinophils % 0.2 %; Hematocrit 37.6 % (36-47); Lymphocytes # 2.4 10^3/uL (0.8-4.8); Mean Corpuscular HGB Conc 33.8 g/dL (30-55); Mean Corpuscular Hemoglobin 30.3 pg (27-33); Mean Corpuscular Volume 89.7 fl (85-98); Monocytes # 0.8 10^3/uL (0.2-0.9); Monocytes % 9.1 %; Neutrophils # 5.92 10^3/uL (1.8-7.7); Nucleated Red Blood Cells % 0 %; Platelet Count 222 10^3/cmm (157-399); Red Blood Count 4.19 10^6/uL (3.85-5.65); Red Cell Distribution Width 13.4 % (12.1-15.1); White Blood Count 9.26 10^3/uL (3.29-11.43)
[2023-05-14 06:16] LABS: Anion Gap 11.9 (5-19); Blood Urea Nitrogen 13 mg/dL (8-23); Calcium 8.4 mg/dL (8.5-10.5); Carbon Dioxide 23 mmol/L (22-29); Chloride 104 mmol/L (98-107); Glomerular Filtration Rate 99.4 mL/min (90-130); Glucose 93 mg/dL (65-115); Osmolality Calculated 282 mOsm/kg (285-295); Sodium 136 mmol/L (136-145)
[2023-05-14 06:27] LABS: Potassium 2.9 mmol/L (3.5-5.1)
[2023-05-14] MEDS: lidocaine 1% 5 ML in potassium chloride premix 100 ML 26.25 ML IV (07:00)
[2023-05-14 07:40] VITALS: BP 132/79; PULSE 72; RESP 17; TEMP 37; O2SAT 96
[2023-05-14 08:07] VITALS: PULSE 71; RESP 16; O2SAT 97
--- NOTE | 2023-05-14 08:59 | PC.CHAP ---
Pastoral Care Encounter/Spiritual Assessment Type of Contact [] Declined malt liquors sales supervisor visit [] Patient/Family/Request visit [] Outpatient visit [] Follow-up visit [] Physician referral [] Code/Alert [x] Routine visit [] Staff referral [] Actively dying [] Patient sleeping [x] Family support [] [] Out of room [] Palliative care [] [] Receiving care in room [] Pre-surgical visit [] Trauma [] Long length of stay [] ICU visit [] Other: Relational/Emotional Strength [x] Patient feels connected with others/family/visitors/staff [] Distress [] Loneliness/isolation [] Abandonment Spirituality of Patient [x] Person of [place] [] Attends Yarsanism of their [place] [x] Believes in Prayer [] Reads Bible or Hindu materials [] There are Spiritual issues to be addressed Plywood Matcher Interventions [x] Prayer [x] Active listening [] Non-anxious presence [x] Spiritual/emotional support [] Crisis/trauma care [] Spiritual counseling [] Bereavement support [] Provided bereavement packet [] Provided Bible/devotional materials [] Provided toy/stuffed animal, coloring book to patient or family member [] Provided Communion [] Anointing/[place] [] Salvation [x] Completed spiritual assessment [] Other: Impact on Illness or Injury [] Angry [] Fearful [] Anxious [] Often cries [] Exhaustion [] Unable to work [] Unable to attend church [] Unable to walk/stand [] Unable to read [] Unable to drive [] Unable to eat/drink [] Unable to sleep [] Unable to be with family [] Patient intubated [] Other: Summary Time spent with patient 5 vmin
--- NOTE | 2023-05-14 09:10 | PM.DCS ---
Discharge Providers Date of Admission: 05/13/23 12:15 Date of Discharge: May 14, 2023 Attending Provider at Admission: Mary Walker MD Attending Provider at Discharge: Mary Walker MD Primary Care Provider: Al Mendez DO Diagnoses at Discharge Discharge Diagnosis (1) Hematemesis: Status: Acute (2) GERD (gastroesophageal reflux disease): Status: Acute Reason for Visit Reason for Visit: Vomiting blood, abd pain Hospital Course Hospital Course 67-year female who was admitted for management valuation of recurrent nausea vomiting and generalized weakness. She noticed coffee-ground emesis as well, general surgery was consulted, patient went for EGD next day, hemoglobin remained stable, she remained hemodynamic stable, patient at home was taking aspirin, no previous history of gastric ulcer, she drinks 1 cup of coffee a day, non-smoker nonalcoholic, lives alone, manages ADLs independently. EGD showed significant esophagitis, small hiatal hernia, contact bleeding from the area of esophagitis, stomach without abnormality, duodenum without abnormality. CT scan also showed hernia. Patient is wanting to follow-up with gastroenterology I will give her referral to see gastroenterology clinic at [place] because she is stating that I will be closer to her house At this point I will discontinue aspirin Give her potassium supplement Recheck BMP Add sucralfate and Protonix for 8 weeks I did corporate counselor patient to follow-up for repeat EGD in case her symptoms persist because this can become dysplastic, metaplasia and precancerous if not treated well Biopsy results are pending, she will follow-up with Dr. Willoughby outpatient I have started her on for liquid diet she has not vomited in the hospital Physical Exam Narrative: Pleasant and cooperative GCS 15 Awake and alert Signs of dehydration improved Daughter at the bedside Nonfocal neuroexam S1, S2 Discharge Data Studies Completed and Pending Completed Studies During Hospitalization Category Date Time Status CT abdomen pelvis w con* [id number] Stat Cat Scan 05/12/23 08:13 Completed XR chest 1V portable [id number] Stat Exams 05/12/23 10:58 Completed Pending at discharge Category Date Time Status Pathology: Surgical [PTH] Routine Pth 05/13/23 14:46 Received Radiology Impressions Chest X-Ray 05/12/23 10:58 IMPRESSION: No acute findings. Laboratory Results WBC 9.26 10^3/uL (3.29-11.43) 05/14/23 05:26 RBC 4.19 10^6/uL (3.85-5.65) 05/14/23 05:26 Hgb 12.70 g/dL (11.27-16.99) 05/14/23 05:26 Hct 37.6 % (36-47) 05/14/23 05:26 MCV 89.7 fl (85-98) 05/14/23 05:26 MCH 30.3 pg (27-33) 05/14/23 05:26 MCHC 33.8 g/dL (30-55) 05/14/23 05:26 RDW 13.4 % (12.1-15.1) 05/14/23 05:26 Plt Count 222 10^3/cmm (157-399) 05/14/23 05:26 MPV 9.0 fL (7.4-10.4) 05/14/23 05:26 Neut % (Auto) 64.0 % 05/14/23 05:26 Lymph % (Auto) 26.0 % 05/14/23 05:26 [facility] % (Auto) 9.1 % 05/14/23 05:26 Eos % (Auto) 0.2 % 05/14/23 05:26 Baso % (Auto) 0.4 % 05/14/23 05:26 Neut # (Auto) 5.92 10^3/uL (1.8-7.7) 05/14/23 05:26 Lymph # (Auto) 2.4 10^3/uL (0.8-4.8) 05/14/23 05:26 [facility] # (Auto) 0.8 10^3/uL (0.2-0.9) 05/14/23 05:26 Eos # (Auto) 0.0 10^3/uL (0.0-0.8) 05/14/23 05:26 Baso # (Auto) 0.0 10^3/uL (0.0-0.1) 05/14/23 05:26 Nucleated RBC % (auto) 0 % 05/14/23 05:26 Nucleated RBCs # 0.0 /100WBC 05/14/23 05:26 PT 13.40 SECONDS (12.1-14.9) 05/12/23 08:10 INR 1.00 (0.8-1.2) 05/12/23 08:10 APTT 27.9 SECONDS (23.9-36.7) 05/12/23 08:10 Sodium 136 mmol/L (136-145) 05/14/23 05:26 Potassium 2.9 mmol/L (3.5-5.1) L 05/14/23 05:26 Chloride 104 mmol/L (98-107) 05/14/23 05:26 Carbon Dioxide 23 mmol/L (22-29) 05/14/23 05:26 Anion Gap 11.9 (5-19) 05/14/23 05:26 BUN 13 mg/dL (8-23) 05/14/23 05:26 Creatinine 0.6 mg/dL (0.5-0.9) 05/14/23 05:26 GFR Calculation 99.4 mL/min (90-130) 05/14/23 05:26 Glucose 93 mg/dL (65-115) 05/14/23 05:26 Estimat Average Glucose 108 05/13/23 05:25 Hemoglobin A1c 5.4 % (4.0-6.0) 05/13/23 05:25 Calculated Osmolality 282 mOsm/kg (285-295) L 05/14/23 05:26 Calcium 8.4 mg/dL (8.5-10.5) L 05/14/23 05:26 Magnesium 2.1 mg/dL (1.7-2.3) 05/13/23 05:25 Total Bilirubin 0.8 mg/dL (0.15-1.2) 05/12/23 08:10 AST 40 U/L (0-32) H 05/12/23 08:10 ALT 35 U/L (0-33) H 05/12/23 08:10 Alkaline Phosphatase 66 U/L (35-105) 05/12/23 08:10 C-Reactive Protein 6.4 mg/L (0.0-4.9) H 05/13/23 05:25 Total Protein 7.4 g/dL (6.6-8.7) 05/12/23 08:10 Albumin 5.1 g/dL (3.5-5.2) 05/12/23 08:10 Globulin 2.3 g/dL (1.3-4.6) 05/12/23 08:10 Lipase 40 U/L (13-60) 05/12/23 08:10 TSH 2.43 uIU/mL (0.27-4.20) 05/12/23 08:10 Urine Color Yellow (Yellow) 05/12/23 08:35 Urine Appearance Sl hazy (CLEAR) A 05/12/23 08:35 Urine pH 5 (5-7) 05/12/23 08:35 Ur Specific [place] 1.020 (1.005-1.030) 05/12/23 08:35 Urine Protein 1+ (Negative) H 05/12/23 08:35 Urine Glucose (UA) Norm (Normal) 05/12/23 08:35 Urine Ketones 2+ (Negative) H 05/12/23 08:35 Urine Blood 3+ (Negative) H 05/12/23 08:35 Urine Nitrate Negative (Negative) 05/12/23 08:35 Urine Bilirubin Neg (Negative) 05/12/23 08:35 Urine Urobilinogen Norm mg/dL (Negative) 05/12/23 08:35 Ur Leukocyte Esterase Negative (Negative) 05/12/23 08:35 Urine RBC 5-10 /hpf (0-2) H 05/12/23 08:35 Urine WBC 5-10 /hpf (0-5) H 05/12/23 08:35 Ur Squamous Epith Cells 10-15 /hpf (0-5) H 05/12/23 08:35 Ur Renal Epithelial Cell 0-4 /hpf 05/12/23 08:35 Amorphous Sediment Not Reportable 05/12/23 08:35 Urine Bacteria Trace /hpf (NONE) 05/12/23 08:35 Urine Mucus 3+ /hpf 05/12/23 08:35 Blood Type O Positive 05/12/23 08:26 Rho(D) Type Rh positive 05/12/23 08:26 Antibody Screen Negative 05/12/23 08:26 Vitals Last Vital Signs Temp 98.6 F 05/14/23 07:40 Pulse 71 05/14/23 08:07 Resp 16 05/14/23 08:07 BP 132/79 05/14/23 07:40 Pulse Ox 97 05/14/23 08:07 O2 Del Method Room Air 05/14/23 08:07 Discharge Plan Discharge Patient Disposition: Home Condition: Stable Prescriptions: New pantoprazole [Protonix] 40 mg tablet,delayed release (DR/EC) 40 mg PO BID 56 Days Qty: 112 0RF potassium chloride 10 mEq tablet extended release 10 meq PO DAILY Qty: 7 0RF sucralfate 1 gram tablet 1 g PO BID 56 Days Qty: 112 0RF Continued spironolactone 100 mg tablet 100 mg PO DAILY melatonin 10 mg tablet 10 mg PO BEDTIME progesterone micronized 100 mg capsule 400 mg PO BEDTIME ondansetron 8 mg tablet,disintegrating 8 mg PO Q8H PRN (Reason: nausea and vomiting) 5 Days Qty: 15 0RF albuterol sulfate [Ventolin HFA] 90 mcg/actuation HFA aerosol inhaler 2 puff inhalation Q6H PRN (Reason: shortness of breath or wheezing) Qty: 8.5 0RF tizanidine 4 mg tablet 4 mg PO Q8H PRN (Reason: Spasms) lorazepam 1 mg tablet 1 mg PO .COMPLEX PRN (Reason: anxiety) 30 Days Qty: 90 2RF Rx Instructions: Take one tablet in the morning and one or two tablets at bedtime, if needed for anxiety metoprolol tartrate 25 mg tablet 25 mg PO BID Qty: 180 3RF hydrocodone-acetaminophen 7.5-325 mg tablet 1 tab PO Q8H PRN (Reason: Pain) azelastine 137 mcg (0.1 %) aerosol,spray 1 spray intranasal BID PRN (Reason: allergies) Rx Instructions: administer into each nostril [employer]IN [employer]ER Thyroid 60 mg tablet 60 mg PO QAM Estradiol 8 Mg Cream See Rx Instructions .ROUTE .COMPLEX Rx Instructions: Apply 1/4 ml to upper arm every morning. escitalopram oxalate 5 mg tablet 5 mg PO QAM Discontinued aspirin [Adult Low Dose Aspirin] 81 mg tablet,delayed release (DR/EC) 81 mg PO DAILY PRN (Reason: Pain) Discharge Orders: Discharge Order (Routine); Ordered 05/14/23 Ordered By: Mary Walker Other Ambulatory Orders: Basic Metabolic Panel (Routine) Timeframe: 1 Week Facility: [facility] - Location: Lab - Main Lab Ordered By: Mary Walker Referrals: Rohan Ramesh [Referring] - 2 weeks (Esophagitis) Al Mendez DO [Primary Care Provider] - Discharge Diet: Full LIquid Discharge Activity: Increase activity as tolerated Patient Instructions: GI Discharge Instructions, Opioid Safety Discharge Attestations Time Spent in Discharge Care*: greater than 30 min Quality Metrics Clinical Quality Measures [ No reported AMI, CVA or VTE this stay] Coding Level of Care Code Acute Code for Chg Fwd Diagnoses Hematemesis K92.0 GERD (gastroesophageal reflux disease) K21.9
[2023-05-14] MEDS: potassium chloride ER 20 mEq Tablet 40 MEQ PO (11:43)
[2023-05-14 12:17] VITALS: BP 132/79; PULSE 71; RESP 16; TEMP 37; O2SAT 97
== END 2023-05-14 12:18 | disposition home or self-care (01) | DRG 370 ==
LOC: ER 11:57 → MEDSURG 12:54
PROVIDERS: Surgery; Admitting Provider Internal Medicine; Emergency Provider Family Medicine; PCP Family Medicine; Visit Provider Internal Medicine
PROC: 0DJ08ZZ Inspection of Upper Intestinal Tract, Via Natural or Artificial Opening Endoscopic (ICD-10-PCS; CPT 43235; principal; 2023-05-13 14:30)
DX: K21.01 Gastro-esophageal reflux disease with esophagitis, with bleeding (principal); K46.9 Unspecified abdominal hernia without obstruction or gangrene; F41.1 Generalized anxiety disorder; F32.9 Major depressive disorder, single episode, unspecified; I10 Essential (primary) hypertension; E87.6 Hypokalemia; E86.0 Dehydration; Z79.82 Long term (current) use of aspirin; Z79.890 Hormone replacement therapy
CPT/HCPCS: 36415; 43239; 71045; 74177; 80048; 80053; 81001; 83036; 83690; 83735; 84443; 85025; 85610; 85730; 86140; 86850; 86900; 87400; 88305; 96374; 96375; 96376; 99285; C9113; G0378; J0171; J1170; J2270; J2704; J2765; J3480; J7030; Q9967

== ENCOUNTER → 2023-05-20 10:40 | Outpatient (BNVA) | payer MEDICARE, BC, SELFPAY | PROVIDERS: PCP Family Medicine; Visit Provider Family Medicine | DX: E87.6 Hypokalemia (principal); R30.0 Dysuria | CPT/HCPCS: 80048; 81000 ==

== ENCOUNTER 2023-07-20 20:23 | Emergency (ER) | payer MEDICARE, BC, SELFPAY ==
[2023-07-20] VITALS (7 sets, daily range): BP systolic 125–169; BP diastolic 70–114; PULSE 82; RESP 16–24; TEMP 36.8; O2SAT 77–100
[2023-07-20 21:08] LABS: Basophils % 0.1 %; Eosinophils # 0.1 10^3/uL (0.0-0.8); Hematocrit 44.3 % (36-47); Lymphocytes # 0.9 10^3/uL (0.8-4.8); Lymphocytes % 12.8 %; Mean Corpuscular HGB Conc 35.2 g/dL (30-55); Mean Corpuscular Hemoglobin 30.7 pg (27-33); Mean Corpuscular Volume 87.2 fl (85-98); Mean Platelet Volume 9.1 fL (7.4-10.4); Monocytes # 0.2 10^3/uL (0.2-0.9); Monocytes % 2.9 %; Neutrophils # 5.72 10^3/uL (1.8-7.7); Neutrophils % 82.5 %; Nucleated Red Blood Cells % 0 %; Platelet Count 284 10^3/cmm (157-399); Red Blood Count 5.08 10^6/uL (3.85-5.65); Red Cell Distribution Width 13.2 % (12.1-15.1); White Blood Count 6.94 10^3/uL (3.29-11.43)
--- NOTE | 2023-07-20 21:16 | ED_ITS ---
HPI - Abdominal Pain 2 General: Chief Complaint: Abdominal Pain Stated Complaint: severe abd pain n/v Time Seen by Provider: 07/20/23 20:29 Source: patient History of Present Illness: 59-year-old female presents emergency ro om complaining of nausea and vomiting that began this morning with rapid heart rate she also had some loose stools. She has a history of severe reflux which led to hospital admission 2 months ago EGD showed a lot of esophageal and gastric irritation but no ulcer. She was discharged home subsequently had follow-up with GI had a colonoscopy with a polypectomy but otherwise was unremarkable she was on proton pump inhibitor and recently stopped about 2 days ago since stopping now she has developed symptoms again. She denies any coffee-ground emesis or hematemesis. MD elicited complaint: abdominal pain Associated Symptoms: Reports diarrhea, nausea and vomiting; Denies chills, dysuria and fever(s) Review of Systems 2 Const: Denies: fever(s) or chills Card: Denies: chest pain Resp: Denies: dyspnea GI: Reports: abdominal pain, nausea, vomiting and diarrhea : Denies: dysuria, urinary frequency or urinary urgency Musc: Denies: neck pain or back pain Skin/Breast: Denies: rash PFSH ED 2 PFSH: Medical History Hypokalemia Leukocytosis Hematemesis Congestion of nasal sinus Diverticulosis Psychiatric care Pharyngitis Thyroid disease Establishing care with new doctor, encounter for Anxiety Depression GERD (gastroesophageal reflux disease) Arthritis S/p breast implant removal Psychiatric care Major depressive disorder, recurrent, in partial remission Major depressive disorder, recurrent, in full remission HTN (hypertension) Generalized anxiety disorder Surgical History S/P cholecystectomy S/P breast augmentation S/P hysterectomy H/O: section Family History Father Stroke Hypercholesterolemia Grandfather Stroke Cancer Social History Smoking and tobacco/nicotine status: never used tobacco/nicotine Female Reproductive History: Spontaneous abortions: No Physical Exam 2 Const: COMMON NORMALS: no acute distress GENERAL APPEARANCE: cooperative and comfortable ORIENTATION/CONSCIOUSNESS: Yes awake, Yes oriented to person, Yes oriented to place and Yes oriented to time HENMT: COMMON NORMALS: normocephalic, atraumatic and hearing grossly normal bilaterally HEAD & SCALP: normocephalic and atraumatic Resp: COMMON NORMALS: normal respiratory effort, No retractions, No use of accessory muscles and clear to auscultation bilaterally AUSCULTATION: clear to auscultation bilaterally Cardio: COMMON NORMALS: regular rate, regular rhythm and No murmurs present (Cardio) RATE: regular rate RHYTHM: regular rhythm GI: COMMON NORMALS: Soft to palpation and No hepatosplenomegaly present A USCULTATION: Yes normoactive bowel sounds PALPATION: Yes Soft to palpation, No Tenderness to palpation present (GI), No Guarding due to palpation present (GI) and Yes No hepatosplenomegaly present Extremity: COMMON NORMALS: normal to inspection, capillary refill normal, no clubbing, cyanosis or edema, no calf tenderness and no pedal edema Neuro: SENSORIUM/ORIENTATION: Yes oriented to person, Yes oriented to place and Yes oriented to time Skin: COMMON NORMALS: no rashes or lesions noted GENERAL SKIN EXAM: no rashes or lesions noted Course 2 Vital Signs: Vital signs: Vital Signs Temperature 98.2 F 07/20/23 20:31 Pulse Rate 82 07/20/23 20:31 Respiratory Rate 24 H 07/20/23 22:20 Blood Pressure 146/114 07/20/23 22:15 Pulse Oximetry 97 07/20/23 22:15 Oxygen Delivery Me thod Room Air 07/20/23 20:31 MDM - Abdominal Pain Medical Decision Making Patient is significantly hyperventilating as shown by her blood gas. After Ativan she had quite a bit of improvement. She did have pretty significant reflux abdominal pain last time I suspect after having stopped her medications this pain was recurring and precipitated some hyperventilating which further exacerbated her pain and her other symptoms. After the Ativan she has had a significant amount of improvement. Will restart her proton pump inhibitor and Carafate. She was given Protonix IV this evening will also give her a single dose of Carafate. Start pantoprazole 40 mg twice a day for 10 days then once daily Carafate every 6 hours as needed do not take within 2 hours of the Protonix. Reviewed foods that she should generally avoid and any others that seem to exacerbate things follow-up with her primary care doctor within 10 to 14 days to reevaluate. Return if has further problems particularly if she has any hemoptysis or coffee-ground emesis Medical Records I reviewed the patient's medical records. Lab Data I reviewed the patient's lab results. 07/20/23 21:00 07/20/23 21:00 Labs/Radiology: Radiology Impressions Abdomen/Pelvis CT 07/20/23 21:34 IMPRESSION: No acute intra-abdominal process. Laboratory Results WBC 6.94 10^3/uL (3.29-11.43) 07/20/23 21:00 RBC 5.08 10^6/uL (3.85-5.65) 07/20/23 21:00 Hgb 15.60 g/dL (11.27-16.99) 07/20/23 21:00 Hct 44.3 % (36-47) 07/20/23 21:00 MCV 87.2 fl (85-98) 07/20/23 21:00 MCH 30.7 pg (27-33) 07/20/23 21:00 MCHC 35.2 g/dL (30-55) 07/20/23 21:00 RDW 13.2 % (12.1-15.1) 07/20/23 21:00 Plt Count 284 10^3/cmm (157-399) 07/20/23 21:00 MPV 9.1 fL (7.4-10.4) 07/20/23 21:00 Neut % (Auto) 82.5 % 07/20/23 21:00 Lymph % (Auto) 12.8 % 07/20/23 21:00 [place] % (Auto) 2.9 % 07/20/23 21:00 Eos % (Auto) 1.0 % 07/20/23 21:00 Baso % (Auto) 0.1 % 07/20/23 21:00 Neut # (Auto) 5.72 10^3/uL (1.8-7.7) 07/20/23 21:00 Lymph # (Auto) 0.9 10^3/uL (0.8-4.8) 07/20/23 21:00 [place] # (Auto) 0.2 10^3/uL (0.2-0.9) 07/20/23 21:00 Eos # (Auto) 0.1 10^3/uL (0.0-0.8) 07/20/23 21:00 Baso # (Auto) 0.0 10^3/uL (0.0-0.1) 07/20/23 21:00 Nucleated RBC % (auto) 0 % 07/20/23 21:00 Nucleated RBCs # 0.0 /100WBC 07/20/23 21:00 Specimen Type Arterial 07/20/23 22:15 Sample Site Brachial, left 07/20/23 22:15 ABG pH 7.61 (7.35-7.45) H* 07/20/23 22:15 ABG pCO2 16.7 mmHg (35-45) L* 07/20/23 22:15 ABG pO2 91.0 mmHg (80.0-100.0) 07/20/23 22:15 ABG HCO3 16.6 mmol/L (22-26) L 07/20/23 22:15 ABG O2 Saturation 98.2 07/20/23 22:15 ABG Base Excess -1.7 mmol/L (-2.0-2.0) 07/20/23 22:15 Michael Test N/a 07/20/23 22:15 A-a O2 Gradient 4.4 mmHg (5-10) L 07/20/23 22:15 Hematocrit 46.3 % (37-47) 07/20/23 22:15 Hgb O2 Saturation 97.3 % (95-100) 07/20/23 22:15 Carboxyhemoglobin 0.4 %THgb (0.4-20.1) 07/20/23 22:15 Methemoglobin 0.4 % (0.4-1.5) 07/20/23 22:15 Total Hemoglobin 15.1 g/dL (12-16) 07/20/23 22:15 Sodium 137.0 mmol/L (131-143) 07/20/23 22:15 Potassium 3.0 mmol/L (3.5-5.0) L 07/20/23 22:15 Glucose 131.0 mg/dL (70-115) H 07/20/23 22:15 Ionized Calcium 1.2 mmol/L (1.1-1.4) 07/20/23 22:15 O2 Delivery Device Room air 07/20/23 22:15 Senior Principal Architect ID [email or web address] 07/20/23 22:15 Sodium 138 mmol/L (136-145) 07/20/23 21:00 Potassium 3.5 mmol/L (3.5-5.1) 07/20/23 21:00 Chloride 100 mmol/L (98-107) 07/20/23 21:00 Carbon Dioxide 18 mmol/L (22-29) L 07/20/23 21:00 Anion Gap 23.5 (5-19) H 07/20/23 21:00 BUN 12 mg/dL (8-23) 07/20/23 21:00 Creatinine 0.8 mg/dL (0.5-0.9) 07/20/23 21:00 GFR Calculation 71.3 mL/min (90-130) L 07/20/23 21:00 Glucose 153 mg/dL (65-115) H 07/20/23 21:00 Calculated Osmolality 289 mOsm/kg (285-295) 07/20/23 21:00 Calcium 10.9 mg/dL (8.5-10.5) H 07/20/23 21:00 Total Bilirubin 0.5 mg/dL (0.15-1.2) 07/20/23 21:00 AST 20 U/L (0-32) 07/20/23 21:00 ALT 23 U/L (0-33) 07/20/23 21:00 Alkaline Phosphatase 68 U/L (35-105) 07/20/23 21:00 Total Protein 8.1 g/dL (6.6-8.7) 07/20/23 21:00 Albumin 4.9 g/dL (3.5-5.2) 07/20/23 21:00 Globulin 3.2 g/dL (1.3-4.6) 07/20/23 21:00 Lipase 26 U/L (13-60) 07/20/23 21:00 Urine Color Colorless (Yellow) 07/20/23 22:11 Urine Appearance Clear (CLEAR) 07/20/23 22:11 Urine pH 6.5 (5-7) 07/20/23 22:11 Ur Specific [place] 1.010 (1.005-1.030) 07/20/23 22:11 Urine Protein Neg (Negative) 07/20/23 22:11 Urine Glucose (UA) Norm (Normal) 07/20/23 22:11 Urine Ketones 2+ (Negative) H 07/20/23 22:11 Urine Blood 2+ (Negative) H 07/20/23 22:11 Urine Nitrate Negative (Negative) 07/20/23 22:11 Urine Bilirubin Neg (Negative) 07/20/23 22:11 Urine Urobilinogen Neg mg/dL (Negative) 07/20/23 22:11 Ur Leukocyte Esterase Negative (Negative) 07/20/23 22:11 Urine RBC 5-10 /hpf (0-2) H 07/20/23 22:11 Urine WBC 0-4 /hpf (0-5) H 07/20/23 22:11 Ur Squamous Epith Cells 0-4 /hpf (0-5) H 07/20/23 22:11 Amorphous Sediment Not Reportable 07/20/23 22:11 Urine Bacteria Trace /hpf (NONE) 07/20/23 22:11 All radiology interpretation(s) finalized by discharge Discharge Plan Discharge Patient Disposition: Home Clinical Impression: Reflux esophagitis, Acute hyperventilation Condition: Stable Prescriptions: New pantoprazole 40 mg tablet,delayed release (DR/EC) 40 mg PO BID Qty: 40 2RF Rx Instructions: Twice daily x 10 days then daily sucralfate 1 gram tablet 1 g PO Q6H 28 Days Qty: 112 0RF Rx Instructions: Do not take within 2 hours of pantoprazole No Action spironolactone 100 mg tablet 100 mg PO DAILY melatonin 10 mg tablet 10 mg PO BEDTIME progesterone micronized 100 mg capsule 400 mg PO BEDTIME ondansetron 8 mg tablet,disintegrating 8 mg PO Q8H PRN (Reason: nausea and vomiting) 5 Days Qty: 15 0RF albuterol sulfate [Ventolin HFA] 90 mcg/actuation HFA aerosol inhaler 2 puff inhalation Q6H PRN (Reason: shortness of breath or wheezing) Qty: 8.5 0RF tizanidine 4 mg tablet 4 mg PO Q8H PRN (Reason: Spasms) lorazepam 1 mg tablet 1 mg PO .COMPLEX PRN (Reason: anxiety) 30 Days Qty: 90 2RF Rx Instructions: Take one tablet in the morning and one or two tablets at bedtime, if needed for anxiety metoprolol tartrate 25 mg tablet 25 mg PO BID Qty: 180 3RF hydrocodone-acetaminophen 7.5-325 mg tablet 1 tab PO Q8H PRN (Reason: Pain) azelastine 137 mcg (0.1 %) aerosol,spray 1 spray intranasal BID PRN (Reason: allergies) Rx Instructions: administer into each nostril DERRICK HAND Thyroid 60 mg tablet 60 mg PO QAM Estradiol 8 Mg Cream See Rx Instructions .ROUTE .COMPLEX Rx Instructions: Apply 1/4 ml to upper arm every morning. escitalopram oxalate 5 mg tablet 5 mg PO QAM potassium chloride 10 mEq tablet extended release 10 meq PO DAILY Qty: 7 0RF Discharge Orders: Discharge ED (Routine); Ordered 07/20/23 Ordered By: Toni Villatoro Referrals: Al Mendez, [Primary Care Provider] - Discharge Diet: As Directed Discharge Activity: Increase activity as tolerated Patient Instructions: Diet for Stomach Ulcers and Gastritis (ED), Opioid Safety, Pain Management Activity Restrictions/Additional Instructions: Thank you for choosing [facility] for your healthcare needs today. Please realize this is an emergency room and that we are providing you with a medical screening exam and this may not be complete and all inclusive of all the testing and or work up that you may need to determine your ailment or severity of your illness. It is very important that you follow up as instructed or that you return to the Emergency Department should you have concerns or if your condition changes or worsens in any way. Restart pantoprazole 1 tablet twice a day for 10 days then once daily. You can use the sucralfate 1 every 6 hours as needed but do not take within 2 hours of taking your pantoprazole. 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
[2023-07-20 21:27] LABS: Alanine Aminotransferase 23 U/L (0-33); Albumin Level 4.9 g/dL (3.5-5.2); Alkaline Phosphatase 68 U/L (35-105); Anion Gap 23.5 (5-19); Aspartate Amino Transferase 20 U/L (0-32); Blood Urea Nitrogen 12 mg/dL (8-23); Calcium 10.9 mg/dL (8.5-10.5); Carbon Dioxide 18 mmol/L (22-29); Chloride 100 mmol/L (98-107); Creatinine Clr Calc Pharmacy 62.3216; Globulin 3.2 g/dL (1.3-4.6); Glomerular Filtration Rate 71.3 mL/min (90-130); Glucose 153 mg/dL (65-115); Lipase 26 U/L (13-60); Osmolality Calculated 289 mOsm/kg (285-295); Potassium 3.5 mmol/L (3.5-5.1); Sodium 138 mmol/L (136-145); Total Bilirubin 0.5 mg/dL (0.15-1.2); Total Protein 8.1 g/dL (6.6-8.7)
--- NOTE | 2023-07-20 21:34 | CTR_ITS ---
PROCEDURE INFORMATION: Exam: CT Abdomen And Pelvis With Contrast Exam date and time: 07/20/2023 9:42 PM Age: 67 years old Clinical indication: Vomiting; Abdominal pain; Generalized; Patient HX: N/v/d since 0900 this morning; Additional info: Abd pain TECHNIQUE: Imaging protocol: Computed tomography of the abdomen and pelvis with contrast. Radiation optimization: All CT scans at this facility use at least one of these dose optimization techniques: automated exposure control; mA and/or kV adjustment per patient size (includes targeted exams where dose is matched to clinical indication); or iterative reconstruction. Contrast material: OMNI 350; Contrast volume: 100 ml; Contrast route: INTRAVENOUS (IV); COMPARISON: CT abdomen pelvis w con* [id number] 05/12/2023 9:15 AM RADIATION DOSE METRICS: Total DLP (mGy-cm): 495 FINDINGS: Diaphragm: Small hiatal hernia. Liver: Normal. No mass. Gallbladder and bile ducts: Post cholecystectomy. Pancreas: Normal. No ductal dilation. Spleen: Normal. No splenomegaly. Adrenal glands: Normal. No mass. Kidneys and ureters: Normal. No hydronephrosis. Stomach and bowel: Diverticulosis of the sigmoid colon no changes diverticulitis. Appendix: Post appendectomy. Intraperitoneal space: Unremarkable. No free air. No significant fluid collection. Vasculature: Vascular calcifications. Pelvic phleboliths. Lymph nodes: Unremarkable. No enlarged lymph nodes. Urinary bladder: Unremarkable as visualized. Reproductive: Post hysterectomy. Bones/joints: Mild curvature of the lumbar spine convex to the right. Mild degenerative disease bilateral joints. Soft tissues: Unremarkable. CT/CT abdomen pelvis w con* [id number] IMPRESSION: No acute intra-abdominal process.
[2023-07-20] MEDS: iohexol 350 mg/mL 500 mL Btl (per mL) IV (21:46)
[2023-07-20] MEDS: pantoprazole 40 mg SDV 80 MG IVP (21:59)
[2023-07-20] MEDS: lidocaine 2% viscous 15 ML, aluminum-mag hydrox-simethicon 30 ML, sucralfate oral liq 1 GM PO (21:59)
[2023-07-20] MEDS: sodium chloride 0.9% 1,000 ML 999 ML IV (22:03)
[2023-07-20] MEDS: morphine 4 mg/mL SDV 1 mL IVP (22:20)
[2023-07-20 22:25] LABS: Alveolar-Arterial Oxygen Gradi 4.4 mmHg (5-10); Arterial Blood Gas Hematocrit 46.3 % (37-47); Base Excess ABG -1.7 mmol/L (-2.0-2.0); Blood Gas Sample Site Brachial, left; Blood Gas Sample Type Arterial; Carboxyhemoglobin 0.4 %THgb (0.4-20.1); HCO3 ABG 16.6 mmol/L (22-26); HGB O2 Sat 97.3 % (95-100); Ionized Calcium Level - ABG 1.2 mmol/L (1.1-1.4); Methemoglobin 0.4 % (0.4-1.5); Oxygen Device ROOM AIR; Oxygen Saturation ABG 98.2; Total Hemoglobin 15.1 g/dL (12-16)
[2023-07-20 22:26] LABS: ABG PCO2 16.7 mmHg (35-45); ABG PH Result 7.61 (7.35-7.45)
[2023-07-20 22:26] LABS: Add Urine Microscopic? YES; Bilirubin Urine Neg (Negative); Blood Urine 2+ (Negative); Glucose Urine UA Norm (Normal); Ketones Urine 2+ (Negative); Leukocyte Esterase Urine Negative (Negative); Nitrate Urine Negative (Negative); Protein Urine Neg (Negative); Urine Appearance Clear (CLEAR); Urine Color Colorless (Yellow); Urobilinogen Urine Neg (Negative); pH Urine 6.5 (5-7)
[2023-07-20 22:27] LABS: Bacteria Urine TRACE /hpf; Squamous Epithelial Cell Urine 0-4 /hpf (0-5); WBC Urine 0-4 /hpf (0-5)
[2023-07-20 22:28] LABS: Add Urine Culture? No
[2023-07-20] MEDS: LORazepam 2 mg/mL INJ 10 mL MDV IVP (22:37)
[2023-07-20] MEDS: sucralfate 1 gm/10 mL Oral Liq UDC PO (23:03)
== END 2023-07-20 23:26 | disposition home or self-care (01) ==
PROVIDERS: Emergency Medicine; Emergency Provider Family Medicine; PCP Family Medicine
DX: K21.00 Gastro-esophageal reflux disease with esophagitis, without bleeding (principal); R06.4 Hyperventilation
CPT/HCPCS: 36415; 36600; 74177; 80051; 80053; 81001; 82330; 82805; 83690; 85025; 96361; 96374; 96375; 99285; C9113; J2060; J2270; J7030; Q9967

== ENCOUNTER → 2023-08-09 15:09 | Outpatient (BNVA) | payer MEDICARE, BC, SELFPAY | PROVIDERS: PCP Family Medicine; Visit Provider Family Medicine | DX: F32.A Depression, unspecified (principal); E87.6 Hypokalemia; R30.0 Dysuria; R73.03 Prediabetes; K21.00 Gastro-esophageal reflux disease with esophagitis, without bleeding; E55.9 Vitamin D deficiency, unspecified; R79.89 Other specified abnormal findings of blood chemistry; E83.39 Other disorders of phosphorus metabolism; E83.42 Hypomagnesemia; R09.81 Nasal congestion; J30.9 Allergic rhinitis, unspecified | CPT/HCPCS: 80048; 80061; 81003; 82306; 82310; 82607; 83735; 83970; 84100; 84443 ==

== ENCOUNTER 2023-12-02 14:23 | Outpatient (CLI) | payer MEDICARE, BC, SELFPAY ==
--- NOTE | 2023-12-02 14:29 | MR_ITS ---
WS: [id number] MRI CERVICAL SPINE NONCONTRAST HISTORY: CERVICALGIA COMPARISON: 04/02/2022 Technique: Multiplanar, multisequence noncontrast imaging of the cervical spine. Straightening and slight reversal of the normal cervical lordosis centered at C4-5. Moderate disc spa ce narrowing at C4-5, C5-6 and C6-7. No fractures. 2 mm retrolisthesis of C4 and C5. 2 mm anterolisth esis of C3. Signal within the cervical cord is normal. Visualized posterior fossa is unremarkable. Craniocervical junction, C1 and C2 relationship, odontoid process and soft tissues are normal. C2-C3: Normal. C3-C4: Minimal facet joint arthropathy. C4-C5: Mild osteophytic ridging encroaching upon the ventral thecal sac. Osteophytes extend into the foramina. Moderate central with mild foraminal stenosis. C5-C6: Diffuse osteophytic ridging with annular disc bulging and facet arthritis. Moderate central wi th moderate to severe bilateral foraminal stenosis. Similar to the prior study without progression. C6-C7: Mild osteophytic ridging. Small bilateral foraminal osteophytes. Moderate central and bilatera l foraminal stenosis. No change. C7-T1: Normal. Paraspinal soft tissue are normal. MR/MR cervical spin wo con* [id number] IMPRESSION: 1. Mild straightening and reversal of the normal cervical lordosis centered at C4-5. 2. Multilevel areas of stenosis with out significant progression since 04/02/19 23. 3. C4-5: Moderate central with mild bilateral foraminal stenosis, predominatel y due to osteophytes. 4. C5-6: Moderate central with moderate to severe bilateral foraminal stenosis . 5. C6-7: Moderate central with bilateral foraminal stenosis.
== END 2023-12-02 14:24 | disposition home or self-care (01) ==
LOC: RAD 14:24
PROVIDERS: PCP Family Medicine; Visit Provider Anesthesiology Pain Medicine
DX: M43.12 Spondylolisthesis, cervical region (principal); M50.021 Cervical disc disorder at C4-C5 level with myelopathy; M50.322 Other cervical disc degeneration at C5-C6 level; M99.61 Osseous and subluxation stenosis of intervertebral foramina of cervical region; M47.892 Other spondylosis, cervical region; M25.78 Osteophyte, vertebrae
CPT/HCPCS: 72141

== ENCOUNTER 2023-12-20 11:26 | Outpatient (CLI) | payer MEDICARE, BC, SELFPAY ==
[2023-12-20 12:21] LABS: Blood Urea Nitrogen 12 mg/dL (8-23); Calcium 9.2 mg/dL (8.5-10.5); Carbon Dioxide 27 mmol/L (22-29); Chloride 89 mmol/L (98-107); Glomerular Filtration Rate 71.1 mL/min (90-130); Glucose 106 mg/dL (65-115); Osmolality Calculated 258 mOsm/kg (285-295); Sodium 124 mmol/L (136-145)
[2023-12-20 12:35] LABS: Anion Gap 12.5 (5-19); Potassium 4.5 mmol/L (3.5-5.1)
== END 2023-12-20 11:27 | disposition home or self-care (01) ==
LOC: LAB 11:30
PROVIDERS: PCP Family Medicine; Visit Provider Student in an Organized Health Care Education/Training Program
DX: Z79.899 Other long term (current) drug therapy (principal)
CPT/HCPCS: 36415; 80048

== ENCOUNTER → 2024-01-20 15:08 | Outpatient (BNVA) | payer MEDICARE, BC, SELFPAY | PROVIDERS: PCP Family Medicine; Visit Provider Nurse Practitioner Psychiatric/Mental Health | DX: Z03.89 Encounter for observation for other suspected diseases and conditions ruled out (principal) | CPT/HCPCS: 80053 ==

== ENCOUNTER 2024-02-29 12:10 | Outpatient (CLI) | payer MEDICARE, BC, SELFPAY | END 2024-02-29 12:11 | disposition home or self-care (01) | LOC: LAB 12:11 | PROVIDERS: PCP Family Medicine; Visit Provider Family Medicine | DX: E87.1 Hypo-osmolality and hyponatremia (principal) | CPT/HCPCS: 36415 ==

== ENCOUNTER 2024-03-03 09:53 | Outpatient (CLI) | payer MEDICARE, BC, SELFPAY ==
[2024-03-03 10:46] LABS: Anion Gap 15.1 (5-19); Blood Urea Nitrogen 14 mg/dL (8-23); Calcium 9.2 mg/dL (8.5-10.5); Carbon Dioxide 24 mmol/L (22-29); Chloride 95 mmol/L (98-107); Glomerular Filtration Rate 71.1 mL/min (90-130); Glucose 93 mg/dL (65-115); Osmolality Calculated 270 mOsm/kg (285-295); Potassium 4.1 mmol/L (3.5-5.1); Sodium 130 mmol/L (136-145)
== END 2024-03-03 09:54 | disposition home or self-care (01) ==
LOC: LAB 09:55
PROVIDERS: PCP Family Medicine; Visit Provider Family Medicine
DX: E87.1 Hypo-osmolality and hyponatremia (principal)
CPT/HCPCS: 36415; 80048; 83930

== ENCOUNTER 2024-03-09 14:22 | Outpatient (CLI) | payer MEDICARE, BC, SELFPAY ==
--- NOTE | 2024-03-09 14:40 | MM_ITS ---
WS: [id number] BILATERAL SCREENING DIGITAL TOMOSYNTHESIS MAMMOGRAM WITH CAD HISTORY: screening for breast cancer COMPARISON: 09/22/2021, 07/27/2018 Bilateral CC and MLO views with tomosynthesis and synthetic mammography submitted. Computer aided det ection analyzed. Breast composition: The breasts are heterogeneously dense, which may obscure small masses. No suspici ous masses, microcalcifications or architectural distortion. Dense dystrophic calcification upper out er quadrant of each breast. May be related to prior implant removal. No suspicious masses or grouping of calcifications. MM/MM scr BI tomosynthesis [id number] IMPRESSION: BI-RADS: 2 - Benign FOLLOW UP: 1 Year Follow-up
== END 2024-03-09 14:23 | disposition home or self-care (01) ==
LOC: RAD 14:25
PROVIDERS: PCP Family Medicine; Visit Provider Family Medicine
DX: Z12.31 Encounter for screening mammogram for malignant neoplasm of breast (principal); R92.333 Mammographic heterogeneous density, bilateral breasts; R92.1 Mammographic calcification found on diagnostic imaging of breast; N63.21 Unspecified lump in the left breast, upper outer quadrant; N63.11 Unspecified lump in the right breast, upper outer quadrant
CPT/HCPCS: 77063; 77067

== ENCOUNTER 2024-03-29 10:01 | Outpatient (CLI) | payer MEDICARE, BC, SELFPAY ==
[2024-03-29 10:57] LABS: Blood Urea Nitrogen 11 mg/dL (8-23); Calcium 9.3 mg/dL (8.5-10.5); Carbon Dioxide 26 mmol/L (22-29); Chloride 94 mmol/L (98-107); Chol HDL Ratio 5.06 mg/dL (0.0-4.40); Cholesterol 243 mg/dL (0-200); Glucose 120 mg/dL (65-115); HDL Cholesterol 48 mg/dL (60-100); LDL Cholesterol Calculated 161 mg/dL (50-129); LDL HDL Ratio 3.35 RATIO (0.00-3.22); Osmolality Calculated 273 mOsm/kg (285-295); Sodium 131 mmol/L (136-145); Triglycerides 168 mg/dL (0-150)
[2024-03-29 10:58] LABS: Urine Random Sodium 45 mmol/L
== END 2024-03-29 10:02 | disposition home or self-care (01) ==
LOC: LAB 10:03
PROVIDERS: PCP Family Medicine; Visit Provider Family Medicine
DX: I10 Essential (primary) hypertension (principal); E87.1 Hypo-osmolality and hyponatremia; E78.01 Familial hypercholesterolemia
CPT/HCPCS: 36415; 80048; 80061; 82172; 83695; 83930; 83935; 84300

== ENCOUNTER → 2024-06-29 15:19 | Outpatient (BNVA) | payer MEDICARE, BC, SELFPAY | PROVIDERS: PCP Family Medicine; Visit Provider Family Medicine | DX: R30.0 Dysuria (principal) | CPT/HCPCS: 87086 ==

== ENCOUNTER → 2024-08-03 14:12 | Outpatient (BNVA) | payer MEDICARE, BC, SELFPAY | PROVIDERS: PCP Family Medicine; Visit Provider Family Medicine | DX: F33.0 Major depressive disorder, recurrent, mild (principal); E03.8 Other specified hypothyroidism; I10 Essential (primary) hypertension; R73.03 Prediabetes; E87.1 Hypo-osmolality and hyponatremia; E78.01 Familial hypercholesterolemia | CPT/HCPCS: 80053; 80061; 83036; 84439; 84443; 84481 ==

== ENCOUNTER 2024-10-20 10:28 | Outpatient (CLI) | payer MEDICARE, BC, SELFPAY ==
--- NOTE | 2024-10-20 10:40 | XR_ITS ---
WS: [id number] Lumbar spine, 7 views including both obliques, lateral views in neutral, flexion and extension position, 10/20/2024 Clinical Data: LUMBOSACRAL SPONDYLOSIS Comparison: Lumbar spine, 04/02/2022 Findings: No compression fractures or subluxation is seen. No disc space narrowing is seen. There is a dextroscoliosis. On obliques no spondylolysis is seen. No instability occurs on flexion or extension. The transverse processes and SI joints are normal. There are right upper quadrant cholecystectomy clips. XR/XR lumbar spine 6V w f/e [id number] Impression: 1. Dextroscoliosis. 2. No instability on flexion or extension. 3. No spondylolysis on oblique images.
== END 2024-10-20 10:29 | disposition home or self-care (01) ==
LOC: RAD 10:34
PROVIDERS: PCP Family Medicine; Visit Provider Student in an Organized Health Care Education/Training Program
DX: M47.817 Spondylosis without myelopathy or radiculopathy, lumbosacral region (principal); M41.86 Other forms of scoliosis, lumbar region
CPT/HCPCS: 72114

== ENCOUNTER → 2025-01-04 11:53 | Outpatient (BNVA) | payer MEDICARE, BC, SELFPAY | PROVIDERS: PCP Family Medicine; Visit Provider Family Medicine | DX: D48.5 Neoplasm of uncertain behavior of skin (principal) | CPT/HCPCS: 88304; 88312; 88342 ==